=== PATIENT | female | born 1955 | race Caucasian/White ===

== ENCOUNTER 2019-06-06 14:28 | Inpatient (IN) | payer MEDICARE, MEDICAID ==
[~2019-06-06] VITALS: Ht 177.8 cm; Wt 59.9 kg
[2019-06-06 15:27] LABS: BASO # 0.1 x10^3/uL (0.0-0.2); BASO % 2 % (0-3); EOS # 0.1 x10^3/uL (0.0-0.7); EOS % 2 % (0-3); HEMATOCRIT 39.5 % (36.0-47.0); HEMOGLOBIN 12.9 g/dL (12.0-15.5); LYMPH # 1.2 x10^3/uL (1.0-4.8); LYMPH % 22 % (24-48); MEAN CORPUSCULAR HEMOGLOBIN 30 pg (25-35); MEAN CORPUSCULAR HGB CONC 33 g/dL (31-37); MEAN CORPUSCULAR VOLUME 91 fL (79-100); MONO # 0.3 x10^3/uL (0.0-1.1); MONO % 5 % (0-9); NEUT # 3.7 x10^3uL (1.8-7.7); NEUT % 70 % (31-73); PLATELET COUNT 247 x10^3/uL (140-400); RED BLOOD COUNT 4.33 x10^6/uL (3.50-5.40); RED CELL DISTRIBUTION WIDTH 13.9 % (11.5-14.5); WHITE BLOOD COUNT 5.4 x10^3/uL (4.0-11.0)
[2019-06-06 15:46] LABS: ALBUMIN 3.6 g/dL (3.4-5.0); ALBUMIN/GLOBULIN RATIO 0.8 (1.0-1.7); CALCIUM 9.1 mg/dL (8.5-10.1); CREATININE 1.7 mg/dL (0.6-1.0); GFR 30.5; MAGNESIUM 2.1 mg/dL (1.8-2.4); POTASSIUM 3.6 mmol/L (3.5-5.1); TOTAL BILIRUBIN 0.3 mg/dL (0.2-1.0); TOTAL PROTEIN 7.9 g/dL (6.4-8.2)
--- NOTE | 2019-06-06 15:48 | PHYS DOC ---
Past History Past Medical History: Anemia, CVA, Dementia, Depression, Hypertension, Seizure, Other Additional Past Medical Histor: INSOMNIA, CATARACTS Past Surgical History: Other Additional Past Surgical Histo: UNKNOWN SURGICAL HX Alcohol Use: None Drug Use: None Adult General Chief Complaint Chief Complaint: MEDICAL CLEARANCE [facility] HPI Patient is a 63 year old F who presents for medical clearance for psychiatric admission. She recently had a stroke resulting in speech deficits. She currently is having suicidal ideations. She denies other pain, shortness of breath or other symptoms Review of Systems Review of Systems Constitutional: Denies fever or chills [] Eyes: Denies change in visual acuity, redness, or eye pain [] HENT: Denies nasal congestion or sore throat [] Respiratory: Denies cough or shortness of breath [] Cardiovascular: No additional information not addressed in [facility] [] GI: Denies abdominal pain, nausea, vomiting, bloody stools or diarrhea [] : Denies dysuria or hematuria [] Musculoskeletal: Denies back pain or joint pain [] Integument: Denies rash or skin lesions [] Neurologic: Denies headache, focal weakness or sensory changes [] Endocrine: Denies polyuria or polydipsia [] All other systems were reviewed and found to be within normal limits, except as documented in this note. Family History Family History No pertinent family medical history was reported Current Medications Current Medications Current medications were reviewed Allergies Allergies Allergies Coded Allergies Type Severity Reaction Last Updated Verified Penicillins Allergy Unknown 06/06/19 Yes Physical Exam Physical Exam Constitutional: Well developed, well nourished, no acute distress, non-toxic appearance. [] HENT: Normocephalic, atraumatic, Eyes: PERRLA, EOMI, conjunctiva normal, no discharge. [] Neck: Normal range of motion, no tenderness, supple, no stridor. [] Cardiovascular:Heart rate regular rhythm, Lungs & Thorax: Bilateral breath sounds clear to auscultation [] Abdomen: Bowel sounds normal, soft, no tenderness, no masses, no pulsatile masses. [] Skin: Warm, dry, no erythema, no rash. [] Extremities: No tenderness, no cyanosis, no clubbing, ROM intact, no edema. [] Neurologic: Alert and oriented X 3, normal motor function, normal sensory function, no focal deficits noted. [] Abnormal speech Psychologic: Affect normal, Suicidal ideations Current Patient Data Vital Signs Vital Signs Date Time Temp Pulse Resp B/P (MAP) Pulse Ox O2 Delivery O2 Flow Rate FiO2 06/06/19 14:30 97.5 59 20 97 Room Air Lab Results Laboratory Tests Test 06/06/19 15:00 White Blood Count 5.4 x10^3/uL (4.0-11.0) Red Blood Count 4.33 x10^6/uL (3.50-5.40) Hemoglobin 12.9 g/dL (12.0-15.5) Hematocrit 39.5 % (36.0-47.0) Mean Corpuscular Volume 91 fL (79-100) Mean Corpuscular Hemoglobin 30 pg (25-35) Mean Corpuscular Hemoglobin Concent 33 g/dL (31-37) Red Cell Distribution Width 13.9 % (11.5-14.5) Platelet Count 247 x10^3/uL (140-400) Neutrophils (%) (Auto) 70 % (31-73) Lymphocytes (%) (Auto) 22 % (24-48) L Monocytes (%) (Auto) 5 % (0-9) Eosinophils (%) (Auto) 2 % (0-3) Basophils (%) (Auto) 2 % (0-3) Neutrophils # (Auto) 3.7 x10^3uL (1.8-7.7) Lymphocytes # (Auto) 1.2 x10^3/uL (1.0-4.8) Monocytes # (Auto) 0.3 x10^3/uL (0.0-1.1) Eosinophils # (Auto) 0.1 x10^3/uL (0.0-0.7) Basophils # (Auto) 0.1 x10^3/uL (0.0-0.2) EKG EKG Normal sinus rhythm Radiology/Procedures Radiology/Procedures [] Course & Med Decision Making Course & Med Decision Making Pertinent Labs and Imaging studies reviewed. (See chart for details) [] Dragon Disclaimer Dragon Disclaimer This electronic medical record was generated, in whole or in part, using a voice recognition dictation system. Departure Departure: Impression: Primary Impression: Encounter for medical screening examination Disposition: 65 XFER TO PSYCH HOSP/UNIT Condition: STABLE Referrals: JASMINA HURST (PCP) LISS MILLARD MD Jun 06, 2019 15:48
--- NOTE | 2019-06-06 16:11 | EKG ---
[address] [address] Test Date: 2019-06-06 Test Time: 15:07:13 Pat Name: REGIS SCHMITT Department: Room: Gender: F Drug Counselor: LUAN : 1955 Requested By: LISS MILLARD Order Number: [id number] Reading MD: Noah Feng Measurements Intervals [place] Rate: 56 P: 36 WA: 166 QRS: 46 QRSD: 88 T: 35 QT: 454 QTc: 441 Interpretive Statements SINUS RHYTHM NORMAL ECG Electronically Signed On 06-13-2019 15:10:33 SMT OPERATOR by Noah Feng
[2019-06-06 16:12] LABS: BILIRUBIN,URINE NEG (NEG); CLARITY,URINE CLOUDY; COLOR,URINE STRAW; GLUCOSE,URINE NEG (NEG)
[2019-06-06 16:14] LABS: BACTERIA,URINE MANY /HPF (0-FEW); NITRITE,URINE NEG (NEG); RBC,URINE 0 /HPF (0-2); SQUAMOUS EPITHELIAL CELL,UR FEW /LPF; UROBILINOGEN,URINE 0.2 mg/dL (0.2 mg/dL)
[2019-06-06 16:15] LABS: BARBITURATES NEG (NEG); BENZODIAZEPINES NEG (NEG); CANNABINOIDS NEG (NEG); COCAINE NEG (NEG); METHADONE NEG (NEG); OPIATES NEG (NEG); PHENCYCLIDINE NEG (NEG)
[2019-06-06 16:16] LABS: AMPHETAMINE/METHAMPHETAMINE NEG (NEG)
[2019-06-06] MEDS ORDERED: METOPROLOL TART IMMED RELEASE 25 MG TABLET PO ONE (17:00)
[2019-06-06 18:44] VITALS: BP 206/91
[2019-06-06] MEDS ORDERED: METHYL SALICYLATE/MENTHOL TOPICAL OINTMENT 57GM TUBE. TP PRN (19:00)
[2019-06-06] MEDS ORDERED: MAG HYDROX/AL HYDROX/SIMETH 30 ML ORAL.SUSP PO PRN (19:00)
[2019-06-06] MEDS ORDERED: MAGNESIUM HYDROXIDE 2,400 MG/30 ML ORAL.SUSP. PO PRN (19:00)
[2019-06-06] MEDS ORDERED: ACETAMINOPHEN 325 MG TABLET PO PRN (19:00)
--- NOTE | 2019-06-06 20:07 | PDOC ---
Exam Note: Jeb Note: Please also refer to the separate dictated note~for this date of service dictated separately. Discussed the patient with Nursing staff reviewed the chart.~Reviewed interim history and current functioning. Reviewed vital signs,~Labs/ Radiology~and current medications noted below. Continue current treatment with the changes noted in the dictated addendum note Assessment: Vital Signs/I&O: Vital Signs Date Time Temp Pulse Resp B/P (MAP) Pulse Ox O2 Delivery O2 Flow Rate FiO2 06/06/19 18:44 98.6 53 20 206/91 (129) 99 06/06/19 17:45 Room Air Labs: Laboratory Tests Test 06/06/19 15:00 06/06/19 15:39 White Blood Count 5.4 x10^3/uL (4.0-11.0) Red Blood Count 4.33 x10^6/uL (3.50-5.40) Hemoglobin 12.9 g/dL (12.0-15.5) Hematocrit 39.5 % (36.0-47.0) Mean Corpuscular Volume 91 fL (79-100) Mean Corpuscular Hemoglobin 30 pg (25-35) Mean Corpuscular Hemoglobin Concent 33 g/dL (31-37) Red Cell Distribution Width 13.9 % (11.5-14.5) Platelet Count 247 x10^3/uL (140-400) Neutrophils (%) (Auto) 70 % (31-73) Lymphocytes (%) (Auto) 22 % (24-48) L Monocytes (%) (Auto) 5 % (0-9) Eosinophils (%) (Auto) 2 % (0-3) Basophils (%) (Auto) 2 % (0-3) Neutrophils # (Auto) 3.7 x10^3uL (1.8-7.7) Lymphocytes # (Auto) 1.2 x10^3/uL (1.0-4.8) Monocytes # (Auto) 0.3 x10^3/uL (0.0-1.1) Eosinophils # (Auto) 0.1 x10^3/uL (0.0-0.7) Basophils # (Auto) 0.1 x10^3/uL (0.0-0.2) Sodium Level 144 mmol/L (136-145) Potassium Level 3.6 mmol/L (3.5-5.1) Chloride Level 104 mmol/L (98-107) Carbon Dioxide Level 30 mmol/L (21-32) Anion Gap 10 (6-14) Blood Urea Nitrogen 24 mg/dL (7-20) H Creatinine 1.7 mg/dL (0.6-1.0) H Estimated GFR (Cockcroft-Gault) 30.5 BUN/Creatinine Ratio 14 (6-20) Glucose Level 105 mg/dL (70-99) H Calcium Level 9.1 mg/dL (8.5-10.1) Magnesium Level 2.1 mg/dL (1.8-2.4) Total Bilirubin 0.3 mg/dL (0.2-1.0) Aspartate Amino Transferase (AST) 15 U/L (15-37) Alanine Aminotransferase (ALT) 18 U/L (14-59) Alkaline Phosphatase 114 U/L (46-116) Total Protein 7.9 g/dL (6.4-8.2) Albumin 3.6 g/dL (3.4-5.0) Albumin/Globulin Ratio 0.8 (1.0-1.7) L Urine Collection Type U cath Urine Color Straw Urine Clarity Cloudy Urine pH 6.0 Urine Specific [place] 1.020 Urine Protein 30 mg/dl (NEG-TRACE) Urine Glucose (UA) Neg mg/dL (NEG) Urine Ketones (Stick) Neg mg/dL (NEG) Urine Blood Neg (NEG) Urine Nitrite Neg (NEG) Urine Bilirubin Neg (NEG) Urine Urobilinogen Dipstick 0.2 mg/dL (0.2 mg/dL) Urine Leukocyte Esterase Small (NEG) Urine RBC 0 /HPF (0-2) Urine WBC 11-20 /HPF (0-4) Urine Squamous Epithelial Cells Few /LPF Urine Bacteria Many /HPF (0-FEW) Urine Opiates Screen Neg (NEG) Urine Methadone Screen Neg (NEG) Urine Barbiturates Neg (NEG) Urine Phencyclidine Screen Neg (NEG) Urine Amphetamine/Methamphetamine Neg (NEG) Urine Benzodiazepines Screen Neg (NEG) Urine Cocaine Screen Neg (NEG) Urine Cannabinoids Screen Neg (NEG) Urine Ethyl Alcohol Neg (NEG) Current Medications: Meds: Current Medications Medications (Trade) Dose Ordered Sig/Baldemar Route PRN Reason Start Time Stop Time Status Last Admin Dose Admin Metoprolol Tartrate (Lopressor) 12.5 mg 1X ONCE PO 06/06/19 17:00 06/06/19 17:01 DC 06/06/19 16:52 I have reviewed the current psychotropics carefully including drug interactions. Risk benefit ratio favors no change other than as noted in my dictated progress note. Diagnosis: Problems: (1) Encounter for medical screening examination (2) Anxiety disorder (3) Cerebrovascular accident (CVA) due to vascular occlusion (4) Major depressive disorder, recurrent episode (5) Impulse control disorder RINA ALFORD MD Jun 06, 2019 20:07
--- NOTE | 2019-06-07 00:51 | NUR ---
Admission Note with Justification for Admission to [facility] Patient admitted to [facility] for protective oversight for emergency stabilization of acute psychiatric crisis. Pt admitted from: Home Mode of arrival: EMS Accompanied By: EMS Precipitating behaviors that initiated intake and admission: was not present at time of admission or during intake, however, it is listed patient having SI with plan to use a knife and feels she is of no use to anyone, patient is very depressed. Patient not eating or sleeping well. Description of failure of out patient attempts at stabilization in previous setting list behavior and medication trials: none known, however patient was having difficulty in the home with SI issues and depression not being managed correctly. Behaviors and assessment findings upon admission: Upon assessment, patient denies SI at that time but does express extreme depression and lack of self-worth. Patient is compliant, calm, and cooperative with cares. Mostly independent. Plan: Admit for protective oversight for adjustment and stabilization of medications, behaviors and mood. Intense treatment regimen including groups, medication adjustments, therapy, consistent regimen for ADL's, self care, and sleep hygiene. Daily monitoring by Inpatient staff, Psychiatry, and Medical Physician.
[2019-06-07 06:21] VITALS: BP 188/87
[2019-06-07 07:15] LABS: BASO # 0.1 x10^3/uL (0.0-0.2); BASO % 1 % (0-3); EOS # 0.1 x10^3/uL (0.0-0.7); EOS % 3 % (0-3); HEMATOCRIT 36.2 % (36.0-47.0); HEMOGLOBIN 11.9 g/dL (12.0-15.5); LYMPH # 1.5 x10^3/uL (1.0-4.8); LYMPH % 30 % (24-48); MEAN CORPUSCULAR HEMOGLOBIN 30 pg (25-35); MEAN CORPUSCULAR HGB CONC 33 g/dL (31-37); MEAN CORPUSCULAR VOLUME 91 fL (79-100); MONO # 0.3 x10^3/uL (0.0-1.1); MONO % 7 % (0-9); NEUT # 2.9 x10^3uL (1.8-7.7); NEUT % 59 % (31-73); PLATELET COUNT 208 x10^3/uL (140-400); RED BLOOD COUNT 3.98 x10^6/uL (3.50-5.40); RED CELL DISTRIBUTION WIDTH 13.5 % (11.5-14.5); WHITE BLOOD COUNT 4.9 x10^3/uL (4.0-11.0)
[2019-06-07 07:37] LABS: ALBUMIN 3.1 g/dL (3.4-5.0); ALBUMIN/GLOBULIN RATIO 0.8 (1.0-1.7); CALCIUM 8.8 mg/dL (8.5-10.1); CREATININE 1.5 mg/dL (0.6-1.0); GFR 35.2; POTASSIUM 3.3 mmol/L (3.5-5.1); TOTAL BILIRUBIN 0.3 mg/dL (0.2-1.0); TOTAL PROTEIN 6.8 g/dL (6.4-8.2)
[2019-06-07] MEDS: ASPIRIN 325 MG TABLET PO SCH (08:17)
[2019-06-07] MEDS: DOCUSATE SODIUM 100 MG CAPSULE PO SCH (08:17)
[2019-06-07] MEDS: METOPROLOL SUCC 24HR ER 25 MG TAB.ER.24H. PO SCH (08:18)
[2019-06-07] MEDS: levETIRAcetam 500 MG TABLET PO SCH ×2 (08:19→21:03)
[2019-06-07] MEDS: MULTIVITAMIN with MINERAL TABLET. PO SCH (08:19)
[2019-06-07] MEDS: hydrALAZINE 25 MG TABLET PO SCH ×2 (08:19→13:54)
[2019-06-07] MEDS: PANTOPRAZOLE 40 MG TABLET. PO SCH (08:19)
[2019-06-07] MEDS: NICOTINE 14MG PATCH. TD SCH (08:19)
[2019-06-07] MEDS ORDERED: SERTRALINE 50 MG TABLET. PO SCH (09:00)
--- NOTE | 2019-06-07 12:49 | HP ---
ADMIT DATE: 06/06/2019 This late entry 06/06/2019 covers elements not covered in my initial note. I met with the patient evening of 06/06/2019 shortly after she arrived on the unit. IDENTIFYING DATA: The patient is a 63-year-old female referred to us from [facility] by Dr. Timur Mcadams, her primary care physician on account of worsening symptoms of depression, status post CVA with suicidal ideation with a plan to use a knife. She feels like she is of no use to anyone. She is depressed, feeling hopeless, helpless, and worthless. She has been at the nursing facility since 07/07/2018, prior to which she was living independently. Never with no children and no close family. The patient's behaviors are deemed dangerous to herself having failed outpatient psychiatric interventions. She is referred for inpatient psychiatric stabilization. CHIEF COMPLAINT: "What is the point of living." HISTORY OF PRESENT ILLNESS: The patient has a history of worsening symptoms of depression, feeling hopeless, helpless, worthless with sleep and appetite changes. She voiced threats of self-arm, suicidal ideation with a plan to use a knife. She feels like she is of no use to anyone, is a burden, has no family, no social support system. She has been seeing Dr. Gannon for counseling, has failed all of this and interventions with Dr. Mcadams for her psychotropics. She is referred for inpatient psychiatric stabilization. No clear history of bipolar disorder. She does have some short-term memory deficits, status post cerebrovascular accident. PAST PSYCHIATRIC HISTORY: As above. MEDICAL HISTORY: Positive for short-term memory deficits, chronic kidney disease, hypertension, seizure disorder, anemia, status post cerebral infarction, expressive aphasia, which further frustrates presentation. ACCU-CHEKS: None. DIET: Regular. No straws. Ambulates ad betty. ALLERGIES: PENICILLIN. CODE STATUS: Full code. FAMILY HISTORY: Noncontributory. SOCIAL HISTORY: The patient denies any alcohol or drug abuse, physical, sexual or elder abuse. She is not known to be a perpetrator. DIET: Regular. 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 States that she was an only child and parents are . REACTION TO HOSPITALIZATION: The patient accepting of it. ASSETS: Cognitively more intact than she initially presented to be. Stable living at the [facility]. MENTAL STATUS EXAMINATION: The patient was seen individually evening of 06/06/2019. She is oriented to herself and situation. With little prompting, she knew she was in [place], said she graduated from [employer] and was able to briefly talk about this. She was unaware of what year she graduated, able to talk about that she worked for [employer], unaware of the date, though she knew the year. Speech does have expressive aphasia. Attention span short. Language function intact. Mood is depressed, anxious, hopeless, worthless, but denies active suicidal ideation. Affect is mood congruent. IMPRESSION: Major depressive disorder, recurrent, severe, mild cognitive impairment, major neurocognitive disorder, early vascular with depression; impulse control disorder; rest as above. PLAN: Admit to Geropsychiatry Unit at [facility]. I will see the patient daily individually from a psychiatric standpoint. Medical followup with Dr. Bowen. Continue the patient on her current psychotropics Zoloft 50 mg a day, Remeron 7.5 at bedtime, trazodone 25 mg at bedtime. Observe baseline, then adjust as clinically indicated. Estimated length of stay 10-12 days. DISPOSITION: Plans back to [facility] when stable. MAN Anu ALFORD MD DR: MAIN/esperanza JOB#: [id number] / [id number]
--- NOTE | 2019-06-07 14:51 | NUR ---
Nursing note: Pt in dining room this morning for meds and assessment. Pt was compliant with taking meds whole and was cooperative and interactive with her assessment. She stated she is experiencing depression and SI and that she has a plan and wants to either starve herself or use a knife. Pt has no other complaints. She is currently in her room sleeping. Will continue to monitor.
[2019-06-07 16:09] VITALS: BP 132/80
[2019-06-07] MEDS: CHOLECALCIFEROL (VITAMIN D3) 50,000 UNIT CAPSULE PO SCH (17:00)
[2019-06-07 18:06] LABS: THYROXINE 7.1 ug/dL (4.5-12.0)
--- NOTE | 2019-06-07 19:55 | PDOC ---
Exam Note: Jeb Note: Please also refer to the separate dictated note~for this date of service dictated separately.~Patient seen individually. Discussed the patient with Nursing staff reviewed the chart.~Reviewed interim history and current functioning. Reviewed vital signs,~Labs/ Radiology~and current medications noted below. Continue current treatment with the changes noted in the dictated addendum note Assessment: Vital Signs/I&O: Vital Signs Date Time Temp Pulse Resp B/P (MAP) Pulse Ox O2 Delivery O2 Flow Rate FiO2 06/07/19 17:01 58 132/80 06/07/19 16:09 97.3 16 99 06/06/19 17:45 Room Air I & O 06/06/19 06/06/19 06/07/19 14:59 22:59 06:59 Intake Total 240 ml Balance 240 ml Labs: Laboratory Tests Test 06/07/19 06:25 White Blood Count 4.9 x10^3/uL (4.0-11.0) Red Blood Count 3.98 x10^6/uL (3.50-5.40) Hemoglobin 11.9 g/dL (12.0-15.5) L Hematocrit 36.2 % (36.0-47.0) Mean Corpuscular Volume 91 fL (79-100) Mean Corpuscular Hemoglobin 30 pg (25-35) Mean Corpuscular Hemoglobin Concent 33 g/dL (31-37) Red Cell Distribution Width 13.5 % (11.5-14.5) Platelet Count 208 x10^3/uL (140-400) Neutrophils (%) (Auto) 59 % (31-73) Lymphocytes (%) (Auto) 30 % (24-48) Monocytes (%) (Auto) 7 % (0-9) Eosinophils (%) (Auto) 3 % (0-3) Basophils (%) (Auto) 1 % (0-3) Neutrophils # (Auto) 2.9 x10^3uL (1.8-7.7) Lymphocytes # (Auto) 1.5 x10^3/uL (1.0-4.8) Monocytes # (Auto) 0.3 x10^3/uL (0.0-1.1) Eosinophils # (Auto) 0.1 x10^3/uL (0.0-0.7) Basophils # (Auto) 0.1 x10^3/uL (0.0-0.2) Sodium Level 144 mmol/L (136-145) Potassium Level 3.3 mmol/L (3.5-5.1) L Chloride Level 106 mmol/L (98-107) Carbon Dioxide Level 26 mmol/L (21-32) Anion Gap 12 (6-14) Blood Urea Nitrogen 23 mg/dL (7-20) H Creatinine 1.5 mg/dL (0.6-1.0) H Estimated GFR (Cockcroft-Gault) 35.2 BUN/Creatinine Ratio 15 (6-20) Glucose Level 95 mg/dL (70-99) Calcium Level 8.8 mg/dL (8.5-10.1) Magnesium Level 2.0 mg/dL (1.8-2.4) Iron Level 43 ug/dL (50-170) L Total Iron Binding Capacity 208 ug/dL (250-450) L Iron Saturation 21 % (15-34) Total Bilirubin 0.3 mg/dL (0.2-1.0) Aspartate Amino Transferase (AST) 16 U/L (15-37) Alanine Aminotransferase (ALT) 15 U/L (14-59) Alkaline Phosphatase 94 U/L (46-116) Total Protein 6.8 g/dL (6.4-8.2) Albumin 3.1 g/dL (3.4-5.0) L Albumin/Globulin Ratio 0.8 (1.0-1.7) L Vitamin B12 Level 396 pg/mL (247-911) 25-Hydroxy Vitamin D Total 21.5 ng/mL (30-100) L Thyroxine (T4) 7.1 ug/dL (4.5-12.0) Total Triiodothyronine (TT3) 79 ng/dL (71-180) Treponema pallidum Antibody Nonreactive (Nonreactive) Current Medications: Meds: Current Medications Medications (Trade) Dose Ordered Sig/Baldemar Route PRN Reason Start Time Stop Time Status Last Admin Dose Admin Aspirin (Kai Aspirin) 325 mg DAILYWBKFT PO 06/07/19 08:00 06/07/19 08:17 Multivitamins/ Calcium (Thera-M Plus) 1 tab DAILY PO 06/07/19 09:00 06/07/19 08:19 Docusate Sodium (Colace) 100 mg DAILY PO 06/07/19 09:00 06/07/19 08:17 Pantoprazole Sodium (Protonix) 40 mg DAILYAC PO 06/07/19 07:30 06/07/19 08:19 Sertraline HCl (Zoloft) 50 mg DAILY PO 06/07/19 09:00 06/07/19 17:39 DC 06/07/19 08:17 Metoprolol Succinate (Toprol Xl) 12.5 mg DAILY PO 06/07/19 09:00 06/07/19 08:18 Hydralazine HCl (Apresoline) 25 mg QID PO 06/07/19 09:00 06/07/19 16:11 DC 06/07/19 13:54 Levetiracetam (Keppra) 1,000 mg BID PO 06/07/19 09:00 06/07/19 08:19 Vitamin D (Vitamin D3) 50,000 unit WEEKLY PO 06/07/19 16:00 06/07/19 17:00 Hydralazine HCl (Apresoline) 50 mg TID PO 06/07/19 16:15 06/07/19 17:01 I have reviewed the current psychotropics carefully including drug interactions. Risk benefit ratio favors no change other than as noted in my dictated progress note. Diagnosis: Problems: (1) Anxiety disorder (2) Cerebrovascular accident (CVA) due to vascular occlusion (3) Major depressive disorder, recurrent episode (4) Impulse control disorder (5) Major neurocognitive disorder (6) Dementia, vascular, with depression (7) Mild cognitive impairment RINA ALFORD MD Jun 07, 2019 19:55
--- NOTE | 2019-06-07 20:35 | NUR ---
Patient has been provided with Practical Counseling for tobacco cessation. It included a face to face interaction and the following was discussed: Recognizing danger situations, Developing coping skills,Basic cessation information. Will follow for discharge needs and discharge planning.
[2019-06-07] MEDS: traZODone 50 MG TABLET. PO SCH (21:02)
[2019-06-07] MEDS: MIRTAZAPINE 7.5 MG TABLET. PO SCH (21:02)
[2019-06-08 00:07] LABS: HEMOGLOBIN A1C 5.1 % (4.8-5.6)
--- NOTE | 2019-06-08 00:14 | NUR ---
Nursing Note Pt states she feels a total loss of her life and control, states that she had a CVA and lost it all. She cannot even go buy new clothing, is depressed because of her loss of her material items, home and freedom. States she just wishes someone could take her shopping. Her family set up a trust for her that she cannot get to. 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 Now feels worthless and its further intensified by the fact that she cannot work and feel productive. Spent quite a bit of time listening and providing feedback to her. Feels better after our conversation.
[2019-06-08 06:09] VITALS: BP 118/60
[2019-06-08] MEDS: NICOTINE 14MG PATCH. TD SCH (09:00)
[2019-06-08] MEDS: PANTOPRAZOLE 40 MG TABLET. PO SCH (11:10)
[2019-06-08] MEDS: DOCUSATE SODIUM 100 MG CAPSULE PO SCH (11:10)
[2019-06-08] MEDS: ARIPiprazole 2 MG TABLET PO SCH (11:10)
[2019-06-08] MEDS: ASPIRIN 325 MG TABLET PO SCH (11:10)
[2019-06-08] MEDS: buPROPion XL 150 MG TAB.ER.24H PO SCH (11:11)
[2019-06-08] MEDS: levETIRAcetam 500 MG TABLET PO SCH ×2 (11:11→20:18)
[2019-06-08] MEDS: MULTIVITAMIN with MINERAL TABLET. PO SCH (11:11)
[2019-06-08] MEDS: METOPROLOL SUCC 24HR ER 25 MG TAB.ER.24H. PO SCH (11:11)
--- NOTE | 2019-06-08 11:33 | CONS ---
DATE OF CONSULTATION: 06/07/2019 REASON FOR CONSULTATION: Medical management. HISTORY OF PRESENT ILLNESS: This is a 63-year-old female patient, resident at [facility], who was admitted on account of suicidal ideation with a plan to use a knife or starve herself. She feels like she is no use to anyone, depressed, all her family have . She is the only child. She has never , has no children. She apparently had had a CVA according to her about 6 months ago and since then has been depressed, feeling hopeless, helpless, worthless. She has been at the nursing facility since 07/07/2018. Before that, she was living independently. As she has failed outpatient psychiatric intervention, she was [facility]. PAST PSYCHIATRIC HISTORY: Significant for worsening depression, feeling hopeless, helpless, worthless. She voiced ____ her to self harm, suicidal ideation with a plan to use a knife. She was apparently seeing ____ for counseling, has failed all of his ____ intervention. PAST MEDICAL HISTORY: Significant for chronic kidney disease, hypertension, seizure disorder, anemia, cerebral infarction, expressive aphasia. ALLERGIES: She is allergic to PENICILLIN. MEDICATIONS: She is currently on following medications: She is on nicotine 14 mg transdermal patch once a day, hydralazine 25 mg 4 times a day, metoprolol succinate 12.5 mg once a day. She is on aspirin 325 mg once a day, analgesic balm applied topically 4 times a day, acetaminophen 650 mg every 6 hours, levetiracetam 1000 mg twice a day, mirtazapine 7.5 mg at bedtime, Zoloft 50 mg once a day, trazodone 25 mg at bedtime, Mylanta 15 mL after meals and as needed, Colace 100 mg once a day, Protonix 40 mg once a day, milk of magnesia 30 mL p.o. daily p.r.n. for constipation, vitamin D 50,000 International Units once a week, multivitamin with mineral 1 tablet once a day. FAMILY HISTORY: Noncontributory. Apparently both parents are . SOCIAL HISTORY: She is apparently single, has never , has no children, is currently a resident at [facility]. PHYSICAL EXAMINATION: GENERAL: On examining her, the patient was sitting in her chair comfortably in no apparent respiratory distress. There was no pallor, jaundice, cyanosis or thyromegaly. No jugular venous distention. No lower limb edema. VITAL SIGNS: Her heart rate was 52, blood pressure was 188/67, temperature was 97.6, respiratory rate was 16, and oxygen saturation was 99%. HEAD, EYES, EARS, NOSE AND THROAT: Showed normocephalic, atraumatic. NECK: Supple. HEART: Showed normal first and second heart sounds with no gallop, rub or murmur. CHEST: Clear to auscultation. No crepitation or rhonchi. ABDOMEN: Distended, soft, nontender. No guarding or rigidity. No organomegaly. All hernial orifices intact. Bowel sounds normal. NEUROLOGIC: She does have at times expressive aphasia, but otherwise she seemed to be generally neurologically intact. She is able to move all her extremities and able to ambulate without assistance or assistive devices. She has no dysphagia, although she has occasional expressive aphasia. LABORATORY WORK: On admission showed her white cell count was 4900, hemoglobin 12, hematocrit 36, MCV 91, and platelet count 208,000. Her chemistry showed a serum sodium 144, potassium 3.3, chloride 106, bicarbonate 26, anion gap of 12, BUN 23, creatinine 1.5, estimated GFR was 35. Blood glucose was 95, calcium was 8.8, magnesium 2. Serum iron, TIBC and iron saturation are all consistent with anemia of chronic disease. Her serum bilirubin, AST, ALT, alkaline phosphatase were all normal. Total protein was 6.8, albumin was 3.1. Her B12 was 396 pg/mL. However, 25-hydroxy vitamin D is definitely low at 21 mcg/dL. IMPRESSION: In summary, this is a 63-year-old female patient who was admitted as a transfer from [facility] on account of suicidal ideation with a plan to use a knife or starve herself to , feels like she is of no use to anybody, depressed, with worsening symptoms of depression being feeling hopeless, helpless, worthless; all this in a background of major depressive disorder and major neurocognitive disorder with depression. She is here for inpatient psychiatric stabilization. Medically, the patient is known to have hypertension that is definitely poorly controlled. She has chronic kidney disease that seems to be stable. She is known to have cerebral infarction with expressive aphasia. Surprisingly with little other neurological deficit and obviously she has anemia, probably of chronic kidney disease, although her hemoglobin and hematocrit are still within acceptable range for patient at her age, my plan is to replenish her vitamin D and I did start her on cholecalciferol 50,000 International Units once a week. For her blood pressure, she is on 2 medications, one of them is the metoprolol succinate in very small dose at 12.5; however, we cannot increase it because of her sinus bradycardia, so I will increase hydralazine to start with 50 mg 3 times a day and we might have to increase that further. Thank you, Dr. Peace, for allowing me to participate in the care of this patient. BIRD JACK MD DR: ELY/esperanza JOB#: [id number] / [id number]
--- NOTE | 2019-06-08 13:26 | NUR ---
Patient was in her room upon morning assessment, was hard to get up. Patient told staff "get out of my room" for breakfast. The nurse went to give morning medications around 11 am. Medications needed to be crushed. Patient took encouraging to open her mouth. Patient got up for lunch and went straight back to bed. No agitation, patient is withdrawn to herself. Was just nodding her head yes to the nurse. Will continue to monitor.
--- NOTE | 2019-06-08 14:25 | NUR ---
Attempted to see Mary at three different times this date. She was sleeping soundly at all attempts and was not easily aroused by this worker's presence or verbal communication. Will attempt to see Mary at a later time.
--- NOTE | 2019-06-08 15:36 | TX PLAN ---
Interdisciplinary Tx Plan Admission Information Jun 06, 2019 at 18:15 Legal Status (on Admission): Voluntary, Court Appointed Guardian DPOA/Guardian Name: Chanel Heath Contact Other Contact Name: Laisha Cristina- caser up at public admi office Verified Code Status: Full Code Allergies: Coded Allergies: Penicillins (Verified Allergy, Unknown, 06/06/19) Diagnoses Primary Diagnosis: MDD Major Neurocognitive d/o vascular with depression Reasons for Admission: Depressed, Sig. Change Sleep, Grief, Suicidal ideation, Isolating Problem in Patient's Words: Mary shared that she has no living family. She has had a stroke and is now living in a care facility. She has sold her home and all of her possessions. She reports having no reason to live. Additional Admission Comments: Per intake, Mary voiced threats of self harm, SI with plans to use a knife, feels like she is of no use to anyone, and is depressed. Problems Active Problems: SI with plan to use knife Depressed mood Feelings of worthlessness Sleeping much of the time and isolating in her room Poor group involvement Inactive Problems: Medication compliant with encouragement Pt Strengths/Limitations Ability for [place]: Fair Cognitive Functioning/Ability: Fair Communication Skills/Ability: Fair Financial Resources: Poor Insight/Judgement: Fair Intellectual Ability: Fair Physical Health: Fair Social Skills: Fair Stability in Family: Poor Verbal Skills: Fair Other strengths/limitations: CVA with aphasia Discharge Criteria Discharge Criteria: Able meet basic life need, Adequate arrangements @DC, Adequate self-care, Improved mood/thought Preliminary Discharge Plan Preliminary DC Plan: [facility] Other Arrangements: [facility] Special Precautions Fall Risk: Moderate Initial D/C Plan Mary will return to [facility] Identified Discharge Needs: Out patient psychiatry Follow up with counselor, Dr. Gannon Follow up with PCP, Dr. Mcadams Currently Utilized Resources Currently Utilized Resources/P: SW support at nursing facility PCP Dr. Gannon, counselor Referrals Community Resources: Out patient psychiatry Identified Problems/Hx/Goals Objectives/Short-Term Goals Short Term Goals: Decrease Isolation, Dec. Symp. 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 Education: Mary studied art and theater at [employer]. Community Follow-up PCP f/u [facility] for medication management Community Provider/Family Inpu: Mary has no living family members. Treatment Plan Explained Patient/Ash Handler had this treatment plan explained to him/her as indicated by the signature below and has been given the opportunity to ask questions and make suggestions: Date: Patient/Ash Handler Signature: Patient/Ash Handler Decline: No Team Members Signatures Team Members Psychiatrist Date Nursing Date CM/SW Date Activity Therapy Date Other Date Other Date MAISHA THURMAN Jun 08, 2019 15:36
[2019-06-08 16:29] VITALS: BP 137/81
--- NOTE | 2019-06-08 19:53 | PDOC ---
Exam Note: Jeb Note: Please also refer to the separate dictated note~for this date of service dictated separately.~Patient seen individually. Discussed the patient with Nursing staff reviewed the chart.~Reviewed interim history and current functioning. Reviewed vital signs,~Labs/ Radiology~and current medications noted below. Continue current treatment with the changes noted in the dictated addendum note Assessment: Vital Signs/I&O: Vital Signs Date Time Temp Pulse Resp B/P (MAP) Pulse Ox O2 Delivery O2 Flow Rate FiO2 06/08/19 16:29 97.8 52 16 137/81 (99) 95 06/06/19 17:45 Room Air I & O 06/07/19 06/07/19 06/08/19 15:00 23:00 07:00 Intake Total 720 ml 340 ml Balance 720 ml 340 ml Current Medications: Meds: Current Medications Medications (Trade) Dose Ordered Sig/Baldemar Route PRN Reason Start Time Stop Time Status Last Admin Dose Admin Trazodone HCl (Desyrel) 25 mg QHS PO 06/07/19 21:00 06/07/19 21:02 Mirtazapine (Remeron) 7.5 mg QHS PO 06/07/19 21:00 06/07/19 21:02 Bupropion HCl (Wellbutrin Xl) 150 mg DAILY PO 06/08/19 09:00 06/10/19 21:00 06/08/19 11:11 Aripiprazole (Abilify) 2 mg DAILY PO 06/08/19 09:00 06/08/19 11:10 I have reviewed the current psychotropics carefully including drug interactions. Risk benefit ratio favors no change other than as noted in my dictated progress note. Diagnosis: Problems: (1) Mild cognitive impairment (2) Dementia, vascular, with depression (3) Major neurocognitive disorder (4) Anxiety disorder (5) Cerebrovascular accident (CVA) due to vascular occlusion (6) Major depressive disorder, recurrent episode (7) Impulse control disorder RINA ALFORD MD Jun 08, 2019 19:53
[2019-06-08] MEDS: MIRTAZAPINE 7.5 MG TABLET. PO SCH (20:18)
[2019-06-08] MEDS: POTASSIUM CHLORIDE 20 MEQ TABLET.ER. PO SCH (20:18)
[2019-06-08] MEDS: traZODone 50 MG TABLET. PO SCH (20:18)
--- NOTE | 2019-06-08 22:04 | NUR ---
Nursing note: Assumed care of pt in the day room. She had been in and out of the room, from her room and back. She was pleasant and cooperative, compliant with meds whole and assessment. No agitation, hallucinations, or delusions. No SI at this time. No c/o pain.
--- NOTE | 2019-06-09 01:35 | PN ---
DATE: 06/07/2019 PSYCHIATRIC PROGRESS NOTE This late entry of 06/07/2019 covers the elements not covered in my initial note. SUBJECTIVE: I met with the patient in the evening. Per JACKY Singh, the patient slept 4-1/4 hours previous night. She is compliant with her medications, frustrated with her CVA, expressive aphasia, states she is depressed, talked to nursing staff that she is still suicidal and had considered using a knife or starving herself, but would not do anything in the hospital. She did eat breakfast, nothing for lunch and staff have taken precautions given her fleeting suicidal ideation. REVIEW OF SYSTEMS: Positive for tiredness. No CV, , pulmonary, eye system symptoms on review. MENTAL STATUS EXAM: Oriented to herself and situation. Speech has some latency, coherent. Abstraction fair, computation impaired, language function intact, attention span short. Mood and affect remains depressed. She is somewhat paranoid. LABORATORY DATA: Reviewed. IMPRESSION: Major depressive disorder, rule out psychotic features, mild cognitive impairment; anxiety disorder, unspecified. PLAN: Change the Zoloft 50 mg a day to Wellbutrin XL 150 mg a day for 3 days, then 300 mg a day thereafter. Wellbutrin should be more activating energizing for her. We will continue Remeron 7.5 mg at bedtime and augment the Wellbutrin with Abilify 2 mg a day and also as an atypical antipsychotic given some of her paranoia and as a mood stabilizer. Adjust further as clinically indicated. RINA ALFORD MD DR: MAIN/esperanza JOB#: [id number] / [id number]
[2019-06-09] MEDS ORDERED: ASPI325T11 PO (02:42)
[2019-06-09] MEDS ORDERED: LEVE10007 PO (02:42)
[2019-06-09] MEDS ORDERED: SERT50TA PO (02:42)
[2019-06-09] MEDS ORDERED: HYDR-2868 PO (02:42)
[2019-06-09] MEDS ORDERED: DOCU-109 PO (02:42)
[2019-06-09] MEDS ORDERED: MIRT15TA2 PO (02:42)
[2019-06-09] MEDS ORDERED: MULT-114 PO (02:42)
[2019-06-09] MEDS ORDERED: TRAZ-120 PO (02:42)
[2019-06-09] MEDS ORDERED: METO-239 PO (02:42)
[2019-06-09] MEDS ORDERED: PANT40TA3 PO (02:42)
[2019-06-09 05:59] VITALS: BP 144/80
[2019-06-09] MEDS: METOPROLOL SUCC 24HR ER 25 MG TAB.ER.24H. PO SCH (08:01)
[2019-06-09] MEDS: ASPIRIN 325 MG TABLET PO SCH (08:01)
[2019-06-09] MEDS: levETIRAcetam 500 MG TABLET PO SCH ×2 (08:02→20:14)
[2019-06-09] MEDS: ARIPiprazole 2 MG TABLET PO SCH (08:02)
[2019-06-09] MEDS: MULTIVITAMIN with MINERAL TABLET. PO SCH (08:03)
[2019-06-09] MEDS: PANTOPRAZOLE 40 MG TABLET. PO SCH (08:03)
[2019-06-09] MEDS: POTASSIUM CHLORIDE 20 MEQ TABLET.ER. PO SCH ×2 (08:03→20:14)
[2019-06-09] MEDS: buPROPion XL 150 MG TAB.ER.24H PO SCH (08:03)
[2019-06-09] MEDS: DOCUSATE SODIUM 100 MG CAPSULE PO SCH (08:03)
[2019-06-09] MEDS: NICOTINE 14MG PATCH. TD SCH (08:04)
[2019-06-09 08:15] LABS: THYROID STIM HORMONE (TSH) 5.462 uIU/mL (0.358-3.740)
--- NOTE | 2019-06-09 09:34 | NUR ---
WEEKLY ACTIVITY THERAPY NOTE Date of Admission:06/07/2019 Date of AT Assessment: TBD Goal aimed: TBD Initial Goal: TBD Weekly progress towards goal: NA Group participation level: NA Weekly highlights: arrived on unit Behaviors observed: not around group, withdrawn to her room Plan: meet/assess Pt Beneficial adaptations: meet/assess Pt
--- NOTE | 2019-06-09 10:05 | NUR ---
Nursing note: Pt was in dining room for morning meds and assessment. She was compliant with taking her meds whole and was cooperative with her assessment. Pt continues to state she is depressed and is having SI. Pt is currently sleeping in her room. Will continue to monitor.
--- NOTE | 2019-06-09 10:50 | NUR ---
WEEKLY NOTE: Mary is averaging 60% of meals and five hours of sleep. She slept thru much of the day yesterday and needed physical assistance from staff to get to the dining room for meals. She reports feelings of depression around the loss of her family, home, personal items and independence due to CVA. Nursing notes reflect SI. Zoloft has been discontinued and Wellbutrin initiated.
[2019-06-09 14:03] LABS: BACTERIA,URINE MANY /HPF (0-FEW); BILIRUBIN,URINE NEG (NEG); CLARITY,URINE TURBID; COLOR,URINE YELLOW; GLUCOSE,URINE NEG (NEG); NITRITE,URINE POS (NEG); SQUAMOUS EPITHELIAL CELL,UR FEW /LPF; UROBILINOGEN,URINE 0.2 mg/dL (0.2 mg/dL); WBC,URINE 20-40 /HPF (0-4)
[2019-06-09 16:03] VITALS: BP 130/66
--- NOTE | 2019-06-09 19:59 | PDOC ---
Exam Note: Jeb Note: Please also refer to the separate dictated note~for this date of service dictated separately.~Patient seen individually. Discussed the patient with Nursing staff reviewed the chart.~Reviewed interim history and current functioning. Reviewed vital signs,~Labs/ Radiology~and current medications noted below. Continue current treatment with the changes noted in the dictated addendum note Assessment: Vital Signs/I&O: Vital Signs Date Time Temp Pulse Resp B/P (MAP) Pulse Ox O2 Delivery O2 Flow Rate FiO2 06/09/19 16:03 98.7 55 16 130/66 (87) 99 06/06/19 17:45 Room Air I & O 06/08/19 06/08/19 06/09/19 15:00 23:00 07:00 Intake Total 0 ml 360 ml Balance 0 ml 360 ml Labs: Laboratory Tests Test 06/09/19 13:13 Urine Collection Type Unknown Urine Color Yellow Urine Clarity Turbid Urine pH 7.0 Urine Specific [place] 1.020 Urine Protein Neg (NEG-TRACE) Urine Glucose (UA) Neg mg/dL (NEG) Urine Ketones (Stick) Neg mg/dL (NEG) Urine Blood Neg (NEG) Urine Nitrite Pos (NEG) Urine Bilirubin Neg (NEG) Urine Urobilinogen Dipstick 0.2 mg/dL (0.2 mg/dL) Urine Leukocyte Esterase Trace (NEG) Urine RBC 1-2 /HPF (0-2) Urine WBC 20-40 /HPF (0-4) Urine Squamous Epithelial Cells Few /LPF Urine Bacteria Many /HPF (0-FEW) Current Medications: Meds: Current Medications Medications (Trade) Dose Ordered Sig/Baldemar Route PRN Reason Start Time Stop Time Status Last Admin Dose Admin Potassium Chloride (Klor-Con) 20 meq BID PO 06/08/19 21:00 06/09/19 08:03 I have reviewed the current psychotropics carefully including drug interactions. Risk benefit ratio favors no change other than as noted in my dictated progress note. Diagnosis: Problems: (1) Mild cognitive impairment (2) Dementia, vascular, with depression (3) Major neurocognitive disorder (4) Encounter for medical screening examination (5) Anxiety disorder (6) Cerebrovascular accident (CVA) due to vascular occlusion (7) Major depressive disorder, recurrent episode (8) Impulse control disorder RINA ALFORD MD Jun 09, 2019 19:59
[2019-06-09] MEDS: traZODone 50 MG TABLET. PO SCH (20:13)
[2019-06-09] MEDS: MIRTAZAPINE 7.5 MG TABLET. PO SCH (20:14)
--- NOTE | 2019-06-09 22:08 | NUR ---
Nursing note: Assumed care of pt in the day room. She was pleasant and compliant with meds and assessment. No c/o pain, no behaviors.
[2019-06-10 06:02] VITALS: BP 170/80
[2019-06-10] MEDS: PANTOPRAZOLE 40 MG TABLET. PO SCH (08:38)
[2019-06-10] MEDS: ASPIRIN 325 MG TABLET PO SCH (08:38)
[2019-06-10] MEDS: POTASSIUM CHLORIDE 20 MEQ TABLET.ER. PO SCH ×2 (08:39→19:51)
[2019-06-10] MEDS: ARIPiprazole 2 MG TABLET PO SCH (08:39)
[2019-06-10] MEDS: levETIRAcetam 500 MG TABLET PO SCH ×2 (08:39→19:51)
[2019-06-10] MEDS: DOCUSATE SODIUM 100 MG CAPSULE PO SCH (08:40)
[2019-06-10] MEDS: METOPROLOL SUCC 24HR ER 25 MG TAB.ER.24H. PO SCH (08:40)
[2019-06-10] MEDS: NICOTINE 14MG PATCH. TD SCH (08:40)
[2019-06-10] MEDS: buPROPion XL 150 MG TAB.ER.24H PO SCH (08:40)
[2019-06-10] MEDS: MULTIVITAMIN with MINERAL TABLET. PO SCH (08:40)
--- NOTE | 2019-06-10 09:33 | NUR ---
Activity Therapy Assessment Completed based on observation and notes. Pt. withdrawn to room and sleeping since admission. When awake, Pt. declines speaking with therapist. Pt. has attended one group since admission and did well but rarely leaves room, even for meals. According to notes, Pt. has no family or friends to speak of, had a recent stroke and feels 'useless', contributing to her depression and SI. Pt. studied art and theatre in college and is independent with most all ADLs. Pt. speaks in full sentences and can advocate for herself with ease. Pt. is fully oriented and her memory seems to be well in tact. Initial goal aimed to increase socialization and engagement: Pt. will engage in three Activity Therapy groups or individual sessions before discharge. Addendum: 06/14/19 at 0955 by MO [place] ACT 06/14/19-Change goal to: Pt. will participate in at least five Activity Therapy groups per week.
--- NOTE | 2019-06-10 11:32 | NUR ---
Patient is in the dining room for assessments and medications. She is calm, cooperative and compliant. Pleasant mood, appropriate and interactive with peers and staff. No agitation. Denies pain or discomfort. Denies SI this shift.
[2019-06-10 16:17] VITALS: BP 148/82
[2019-06-10] MEDS: traZODone 50 MG TABLET. PO SCH (19:51)
[2019-06-10] MEDS: MIRTAZAPINE 7.5 MG TABLET. PO SCH (19:51)
--- NOTE | 2019-06-10 20:34 | PDOC ---
Exam Note: Jeb Note: Please also refer to the separate dictated note~for this date of service dictated separately.~Patient seen individually. Discussed the patient with Nursing staff reviewed the chart.~Reviewed interim history and current functioning. Reviewed vital signs,~Labs/ Radiology~and current medications noted below. Continue current treatment with the changes noted in the dictated addendum note Assessment: Vital Signs/I&O: Vital Signs Date Time Temp Pulse Resp B/P (MAP) Pulse Ox O2 Delivery O2 Flow Rate FiO2 06/10/19 19:51 63 148/82 06/10/19 16:17 97.6 18 98 Room Air I & O 06/09/19 06/09/19 06/10/19 15:00 23:00 07:00 Intake Total 600 ml 360 ml Balance 600 ml 360 ml Current Medications: I have reviewed the current psychotropics carefully including drug interactions. Risk benefit ratio favors no change other than as noted in my dictated progress note. Diagnosis: Problems: (1) Mild cognitive impairment (2) Dementia, vascular, with depression (3) Major neurocognitive disorder (4) Encounter for medical screening examination (5) Anxiety disorder (6) Cerebrovascular accident (CVA) due to vascular occlusion (7) Major depressive disorder, recurrent episode (8) Impulse control disorder RINA ALFORD MD Jun 10, 2019 20:34
--- NOTE | 2019-06-10 20:48 | NUR ---
Nursing note: Assumed care of pt in her room where she was sleeping. She was compliant and cooperative but withdrawn. She denies SI at this time. Not interested in snacks or tv time. Addendum: 06/10/19 at 2051 by SERA CORDON RN Previous note is in error. Please ignore
--- NOTE | 2019-06-10 20:52 | NUR ---
Nursing note: Assumed care of pt in the day room where she was eating a snack and watching a movie with peers. She was calm and compliant, no hallucinations, agitation, or delusions present at this time. Denies SI. Pt offered to give me a back rub. She is very appreciative of care.
--- NOTE | 2019-06-11 02:41 | PN ---
DATE: 06/09/2019 PSYCHIATRIC PROGRESS NOTE This late entry 06/09/2019 covers the elements not covered in my initial note. SUBJECTIVE: I met with the patient in the evening and staffed at a treatment team meeting with the entire team in the morning. Sleeping about 5 hours. Appetite is 60%. UA, C and S is awaited. REVIEW OF SYSTEMS: Positive for some tiredness. No CV, , pulmonary, eye system symptoms on review. MENTAL STATUS EXAM: Oriented to herself and situation. Speech is difficult to understand at times due to dysphasia. Abstraction fair, computation impaired, language function intact. Mood is still depressed. Denies active suicidal ideation. Attention span short. IMPRESSION: Major depressive disorder, mild cognitive impairment. Rest unchanged. PLAN: No change from initial note. Maintain Wellbutrin, increase gradually. Continue Keppra for seizures, Remeron, trazodone, Abilify to augment the Wellbutrin 2 mg a day. Rest unchanged for now. MAN Anu ALFORD MD DR: MAIN/esperanza JOB#: [id number] / [id number]
[2019-06-11 05:56] VITALS: BP 177/89
--- NOTE | 2019-06-11 08:33 | PN ---
DATE: 06/08/2019 PSYCHIATRIC PROGRESS NOTE This late entry 06/08/2019 covers elements not covered in my initial note. SUBJECTIVE: I met with the patient in the evening. According to Zhane RICO, the patient slept 6-1/2 hours previous night. Potassium 3.3, deferred to Dr. Bowen. sand slinger, she told the nursing staff, she wanted to get out, took her meds, crushed in the morning, withdrawn, depressed, frustrated with her CVA status and living circumstances. REVIEW OF SYSTEMS: No CV, , pulmonary, eye system symptoms on review. MENTAL STATUS EXAM: Oriented to herself, situation. Abstraction fair, computation impaired, language function intact, attention span short. Mood and affect remain somewhat withdrawn. LABORATORY DATA: Reviewed. IMPRESSION: Unchanged from initial note. PLAN: No change from initial note. No active suicidal ideation is a question. MAN Anu ALFORD MD DR: MAIN/esperanza JOB#: [id number] / [id number]
[2019-06-11] MEDS: MULTIVITAMIN with MINERAL TABLET. PO SCH (08:36)
[2019-06-11] MEDS: levETIRAcetam 500 MG TABLET PO SCH ×3 (08:36→21:58)
[2019-06-11] MEDS: POTASSIUM CHLORIDE 20 MEQ TABLET.ER. PO SCH ×3 (08:36→21:58)
[2019-06-11] MEDS: DOCUSATE SODIUM 100 MG CAPSULE PO SCH (08:36)
[2019-06-11] MEDS: PANTOPRAZOLE 40 MG TABLET. PO SCH (08:37)
[2019-06-11] MEDS: ARIPiprazole 2 MG TABLET PO SCH (08:37)
[2019-06-11] MEDS: ASPIRIN 325 MG TABLET PO SCH (08:37)
[2019-06-11] MEDS: METOPROLOL SUCC 24HR ER 25 MG TAB.ER.24H. PO SCH (08:37)
[2019-06-11] MEDS: NICOTINE 14MG PATCH. TD SCH (08:42)
[2019-06-11] MEDS: buPROPion XL 300 MG TAB.ER.24H. PO SCH (08:42)
--- NOTE | 2019-06-11 09:33 | NUR ---
Patient was in the dining room during morning rounding, took medications, allowed for morning assessment. No agitation noted, patient is now in the dayroom. Will continue to monitor.
[2019-06-11 15:57] VITALS: BP 151/78
--- NOTE | 2019-06-11 20:37 | PDOC ---
Exam Note: Jeb Note: Please also refer to the separate dictated note~for this date of service dictated separately.~Patient seen individually. Discussed the patient with Nursing staff reviewed the chart.~Reviewed interim history and current functioning. Reviewed vital signs,~Labs/ Radiology~and current medications noted below. Continue current treatment with the changes noted in the dictated addendum note Assessment: Vital Signs/I&O: Vital Signs Date Time Temp Pulse Resp B/P (MAP) Pulse Ox O2 Delivery O2 Flow Rate FiO2 06/11/19 15:57 98.8 60 14 151/78 (102) 98 06/11/19 05:56 Room Air I & O 06/10/19 06/10/19 06/11/19 15:00 23:00 07:00 Intake Total 480 ml 360 ml Balance 480 ml 360 ml Current Medications: Meds: Current Medications Medications (Trade) Dose Ordered Sig/Baldemar Route PRN Reason Start Time Stop Time Status Last Admin Dose Admin Bupropion HCl (Wellbutrin Xl) 300 mg DAILY PO 06/11/19 09:00 06/11/19 08:42 I have reviewed the current psychotropics carefully including drug interactions. Risk benefit ratio favors no change other than as noted in my dictated progress note. Diagnosis: Problems: (1) Mild cognitive impairment (2) Dementia, vascular, with depression (3) Major neurocognitive disorder (4) Anxiety disorder (5) Cerebrovascular accident (CVA) due to vascular occlusion (6) Major depressive disorder, recurrent episode (7) Impulse control disorder RINA ALFORD MD Jun 11, 2019 20:37
[2019-06-11] MEDS: MIRTAZAPINE 7.5 MG TABLET. PO SCH ×2 (21:00→21:58)
[2019-06-11] MEDS: traZODone 50 MG TABLET. PO SCH ×2 (21:00→21:58)
--- NOTE | 2019-06-12 00:50 | NUR ---
Pt wandered the halls this evening and put herself to bed off and on. Pt noncompliant with medications. Refused to sit up and take medications. Despite, discussion of each medication and the need for them, refused to discuss or listen to information. Yelled,"Just get out of my room. I don't want anything," repeatedly until this nurse left. Later pt laying in bed naked and refused to get dressed. With encouragement and help, went to bed with underwear and a shirt. Still refused medication or discussion. Will continue to monitor.
[2019-06-12 05:46] VITALS: BP 177/93
[2019-06-12] MEDS: ARIPiprazole 2 MG TABLET PO SCH (08:48)
[2019-06-12] MEDS: ASPIRIN 325 MG TABLET PO SCH (08:48)
[2019-06-12] MEDS: MULTIVITAMIN with MINERAL TABLET. PO SCH (08:48)
[2019-06-12] MEDS: levETIRAcetam 500 MG TABLET PO SCH ×2 (08:48→19:47)
[2019-06-12] MEDS: PANTOPRAZOLE 40 MG TABLET. PO SCH (08:48)
[2019-06-12] MEDS: buPROPion XL 300 MG TAB.ER.24H. PO SCH (08:48)
[2019-06-12] MEDS: POTASSIUM CHLORIDE 20 MEQ TABLET.ER. PO SCH ×2 (08:49→19:47)
[2019-06-12] MEDS: DOCUSATE SODIUM 100 MG CAPSULE PO SCH (08:50)
[2019-06-12] MEDS: METOPROLOL SUCC 24HR ER 25 MG TAB.ER.24H. PO SCH (08:51)
[2019-06-12] MEDS: NICOTINE 14MG PATCH. TD SCH (09:00)
[2019-06-12 15:36] VITALS: BP 125/80
--- NOTE | 2019-06-12 15:44 | NUR ---
In a.m. was extremely lethargic and weak, unable to ambulate safely and placed in w/c. Needed to be fed, but ate little. Complied with medications given crushed in pudding. Refused her nicotine patch, stated "I don't need it". In afternoon was more alert and mobile. Unable to accurately state year, day, or place, but speech was clear. 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 Has blunted affect, denies hallucinations or delusions. Incontinent of bowel and bladder.
[2019-06-12] MEDS: traZODone 50 MG TABLET. PO SCH (19:47)
[2019-06-12] MEDS: MIRTAZAPINE 7.5 MG TABLET. PO SCH (19:48)
--- NOTE | 2019-06-12 19:54 | PDOC ---
Exam Note: Jeb Note: Please also refer to the separate dictated note~for this date of service dictated separately.~Patient seen individually. Discussed the patient with Nursing staff reviewed the chart.~Reviewed interim history and current functioning. Reviewed vital signs,~Labs/ Radiology~and current medications noted below. Continue current treatment with the changes noted in the dictated addendum note Assessment: Vital Signs/I&O: Vital Signs Date Time Temp Pulse Resp B/P (MAP) Pulse Ox O2 Delivery O2 Flow Rate FiO2 06/12/19 19:47 64 125/80 06/12/19 15:36 97.8 16 96 06/11/19 05:56 Room Air I & O 06/11/19 06/11/19 06/12/19 15:00 23:00 07:00 Intake Total 600 ml 600 ml Balance 600 ml 600 ml Current Medications: I have reviewed the current psychotropics carefully including drug interactions. Risk benefit ratio favors no change other than as noted in my dictated progress note. Diagnosis: Problems: (1) Mild cognitive impairment (2) Dementia, vascular, with depression (3) Major neurocognitive disorder (4) Anxiety disorder (5) Cerebrovascular accident (CVA) due to vascular occlusion (6) Major depressive disorder, recurrent episode (7) Impulse control disorder RINA ALFORD MD Jun 12, 2019 19:54
--- NOTE | 2019-06-12 22:01 | NUR ---
Nursing note: Assumed care of pt in the day room. She was pleasant and interactive, compliant with meds and assessment. Weakness noted earlier was not noticeable tonight. No delusions or hallucinations present, no c/o pain.
--- NOTE | 2019-06-13 03:10 | PN ---
DATE: 06/10/2019 PSYCHIATRIC PROGRESS NOTE This late entry, 06/10/2019, covers elements not covered in my initial note. SUBJECTIVE: I met with the patient in the evening. Per Shelby RN, patient slept 6-1/2 hours previous night. She has been flat, anxious, compliant with medications. At one point, she was found squatting between her bed and chair. States she fell, but did not seem possible per nursing report, should be monitored for this. She probably has a UTI worsening some of her psychiatric presentation. REVIEW OF SYSTEMS: Difficulty with her expressive aphasia. No CV, , pulmonary, eye system symptoms on review. MENTAL STATUS EXAM: Oriented to herself and situation. Speech is as noted above. Abstraction fair, computation impaired, language function intact. Mood and affect withdrawn, depressed. LABORATORY DATA: Reviewed. IMPRESSION: Unchanged from initial note. PLAN: No change from initial note. Treat the UTI once sensitivity returns. RINA ALFORD MD DR: MAIN/esperanza JOB#: [id number] / [id number]
[2019-06-13 06:03] VITALS: BP 159/89
[2019-06-13] MEDS: NICOTINE 14MG PATCH. TD SCH (09:00)
[2019-06-13] MEDS: buPROPion XL 300 MG TAB.ER.24H. PO SCH (09:27)
[2019-06-13] MEDS: ASPIRIN 325 MG TABLET PO SCH (09:27)
[2019-06-13] MEDS: MULTIVITAMIN with MINERAL TABLET. PO SCH (09:28)
[2019-06-13] MEDS: levETIRAcetam 500 MG TABLET PO SCH ×2 (09:28→19:46)
[2019-06-13] MEDS: PANTOPRAZOLE 40 MG TABLET. PO SCH (09:29)
[2019-06-13] MEDS: POTASSIUM CHLORIDE 20 MEQ TABLET.ER. PO SCH ×2 (09:29→19:45)
[2019-06-13] MEDS: METOPROLOL SUCC 24HR ER 25 MG TAB.ER.24H. PO SCH (09:29)
[2019-06-13] MEDS: DOCUSATE SODIUM 100 MG CAPSULE PO SCH (09:29)
[2019-06-13] MEDS: ARIPiprazole 2 MG TABLET PO SCH (09:29)
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
--- NOTE | 2019-06-13 15:11 | NUR ---
Mary is in the day room for assessment and medication. She is in pleasant spirits. Calm, cooperative and compliant. Took her medications whole. Participated moderately in groups. No agitation. Denies pain or discomfort. Denies SI.
[2019-06-13 15:51] VITALS: BP 153/77
--- NOTE | 2019-06-13 15:58 | PN ---
DATE: 06/11/2019 PSYCHIATRIC PROGRESS NOTE This late entry 06/11/2019 covers elements not covered in my initial note. SUBJECTIVE: I met with the patient evening of 06/11/2019. The patient slept 4-1/2 hours previous night. She remains somewhat withdrawn, depressed, but denies active suicidal ideation. Does have expressive aphasia. REVIEW OF SYSTEMS: No CV, , pulmonary, eye system symptoms on review. MENTAL STATUS EXAM: Oriented to herself and situation. Speech is as noted above. Abstraction fair, computation impaired, language function intact. Mood and affect somewhat withdrawn, depressed. LABORATORY DATA: Reviewed. IMPRESSION: Unchanged from initial note. Major depressive disorder, recurrent, mild cognitive impairment. Rest unchanged. PLAN: Maintain current psychotropics, Remeron, Wellbutrin, trazodone, Abilify. She is on Keppra for seizure disorder. MAN Anu ALFORD MD DR: MAIN/esperanza JOB#: [id number] / [id number]
--- NOTE | 2019-06-13 16:03 | PN ---
DATE: 06/12/2019 PSYCHIATRIC PROGRESS NOTE This late entry 06/12/2019 covers elements not covered in my initial note. SUBJECTIVE: I met with the patient in the evening. The patient slept 5-1/2 hours previous night. UA is positive, gram-negative rods. We will defer to Dr. Bowen, sensitivity is awaited. The patient has been pleasant, compliant with her medication, refused a nicotine patch. As I met with her in the evening, she was reading a novel written by Jaylyn Garcia and when I questioned her on this what the story of a traffic police officer and how his work affected his life, she was able to recall parts of this, do not entirely. REVIEW OF SYSTEMS: Positive for problems expressing herself verbally. No CV, , pulmonary, eye system symptoms on review. MENTAL STATUS EXAM: Oriented to herself and situation. Speech as above. Abstraction fair, computation impaired, language function intact, attention span short. Mood and affect withdrawn. LABORATORY DATA: Reviewed. IMPRESSION: Major depressive disorder, recurrent, rule out psychotic features, urinary tract infection, mild cognitive impairment versus major neurocognitive disorder, early vascular with depression. Rest unchanged. PLAN: No change from initial note. Treat the UTI, defer to Dr. Bowen. Maintain Wellbutrin increase gradually. Continue Keppra, trazodone, Remeron, Abilify for now. MAN Anu ALFORD MD DR: MAIN/esperanza JOB#: [id number] / [id number]
[2019-06-13] MEDS ORDERED: DOXYCYCLINE HYCLATE 100 MG TABLET PO SCH (18:00)
[2019-06-13] MEDS: LACTOBACILLUS RHAMNOSUS GG 1 CAPSULE. PO SCH (19:45)
[2019-06-13] MEDS: MIRTAZAPINE 7.5 MG TABLET. PO SCH (19:45)
[2019-06-13] MEDS: traZODone 50 MG TABLET. PO SCH (19:46)
[2019-06-13] MEDS: DOXYCYCLINE HYCLATE 100 MG TABLET PO SCH (19:46)
--- NOTE | 2019-06-13 19:49 | PDOC ---
Exam Note: Jeb Note: Please also refer to the separate dictated note~for this date of service dictated separately.~Patient seen individually. Discussed the patient with Nursing staff reviewed the chart.~Reviewed interim history and current functioning. Reviewed vital signs,~Labs/ Radiology~and current medications noted below. Continue current treatment with the changes noted in the dictated addendum note Assessment: Vital Signs/I&O: Vital Signs Date Time Temp Pulse Resp B/P (MAP) Pulse Ox O2 Delivery O2 Flow Rate FiO2 06/13/19 15:51 97.1 153/77 (102) 06/13/19 14:55 68 06/13/19 06:03 18 96 Room Air I & O 06/12/19 06/12/19 06/13/19 14:59 22:59 06:59 Intake Total 360 ml 600 ml Balance 360 ml 600 ml Current Medications: I have reviewed the current psychotropics carefully including drug interactions. Risk benefit ratio favors no change other than as noted in my dictated progress note. Diagnosis: Problems: (1) Mild cognitive impairment (2) Dementia, vascular, with depression (3) Major neurocognitive disorder (4) Anxiety disorder (5) Cerebrovascular accident (CVA) due to vascular occlusion (6) Major depressive disorder, recurrent episode (7) Impulse control disorder RINA ALFORD MD Jun 13, 2019 19:49
--- NOTE | 2019-06-13 23:40 | NUR ---
Nursing note: Assumed care of pt in the day room where she was watching tv. Pt is pleasant and cooperative. No behaviors, no c/o pain. Meds taken whole.
[2019-06-14 06:08] VITALS: BP_SYST 107; BP_SYST 176; BP_SYST 179; BP_DIAS 65; BP_DIAS 79
[2019-06-14] MEDS: ARIPiprazole 2 MG TABLET PO SCH (08:08)
[2019-06-14] MEDS: buPROPion XL 300 MG TAB.ER.24H. PO SCH (08:08)
[2019-06-14] MEDS: DOCUSATE SODIUM 100 MG CAPSULE PO SCH (08:08)
[2019-06-14] MEDS: METOPROLOL SUCC 24HR ER 25 MG TAB.ER.24H. PO SCH (08:08)
[2019-06-14] MEDS: CHOLECALCIFEROL (VITAMIN D3) 50,000 UNIT CAPSULE PO SCH (08:09)
[2019-06-14] MEDS: LACTOBACILLUS RHAMNOSUS GG 1 CAPSULE. PO SCH ×2 (08:09→20:16)
[2019-06-14] MEDS: DOXYCYCLINE HYCLATE 100 MG TABLET PO SCH ×2 (08:10→20:16)
[2019-06-14] MEDS: POTASSIUM CHLORIDE 20 MEQ TABLET.ER. PO SCH ×2 (08:10→20:16)
[2019-06-14] MEDS: levETIRAcetam 500 MG TABLET PO SCH ×2 (08:11→20:16)
[2019-06-14] MEDS: ASPIRIN 325 MG TABLET PO SCH (08:11)
[2019-06-14] MEDS: PANTOPRAZOLE 40 MG TABLET. PO SCH (08:11)
[2019-06-14] MEDS: MULTIVITAMIN with MINERAL TABLET. PO SCH (08:11)
[2019-06-14] MEDS: NICOTINE 14MG PATCH. TD SCH (08:12)
--- NOTE | 2019-06-14 10:03 | NUR ---
Mary is in the day room for assessment and medication. She is in pleasant spirits. Calm, cooperative and compliant. Took her medications whole. Out in the day room for group. No agitation. Denies pain or discomfort. Denies SI.
--- NOTE | 2019-06-14 12:14 | NUR ---
WEEKLY ACTIVITY THERAPY NOTE Date of Admission:06/07/2019 Date of AT Assessment: 06/10/2019 Goal aimed: to increase socialization and engagement Initial Goal: Pt. will engage in three Activity Therapy groups or individual sessions before discharge. Weekly progress towards goal: achieved, four groups this week Group participation level: varied Weekly highlights: dancing a few times over the last few days Behaviors observed: basia mckeon Plan: change goal to: Pt. will participate in at least five Activity Therapy groups per week. Beneficial adaptations: positive response to music, potentially battery operated cat
--- NOTE | 2019-06-14 15:33 | NUR ---
WEEKLY NOTE: Mary is averaging 80% of meals and six hours of sleep at night. She has been cooperative with nursing assessments and typically is medication compliant. She continues to be tearful around the loss of her home and independence. Mary has been involved in some of the recreational therapy activities and particularly enjoys music and dance. Wellbutrin has been increased for depression. Mary is currently on doxycycline for a UTI. Left message for Gwen, public admin/guardian's office to provide progress report. Reviewed with Jen about the possibility of investigating if Mary may be appropriate for a HC/BS assisted living facility as she is higher functioning with her ADL's and would have an apartment of her own which she really identifies with. Jen indicated it was something she would look into. Faxed current notes to Jen at [facility] for review.
[2019-06-14 16:03] VITALS: BP 166/78
--- NOTE | 2019-06-14 19:51 | PDOC ---
Exam Note: Jeb Note: Please also refer to the separate dictated note~for this date of service dictated separately.~Patient seen individually. Discussed the patient with Nursing staff reviewed the chart.~Reviewed interim history and current functioning. Reviewed vital signs,~Labs/ Radiology~and current medications noted below. Continue current treatment with the changes noted in the dictated addendum note Assessment: Vital Signs/I&O: Vital Signs Date Time Temp Pulse Resp B/P (MAP) Pulse Ox O2 Delivery O2 Flow Rate FiO2 06/14/19 16:03 97.5 58 18 166/78 (107) 98 Room Air I & O 06/13/19 06/13/19 06/14/19 15:00 23:00 07:00 Intake Total 360 ml 240 ml 100 ml Balance 360 ml 240 ml 100 ml Current Medications: Meds: Current Medications Medications (Trade) Dose Ordered Sig/Baldemar Route PRN Reason Start Time Stop Time Status Last Admin Dose Admin Lactobacillus Rhamnosus (Culturelle) 1 cap BID PO 06/13/19 21:00 06/14/19 08:09 Doxycycline Hyclate (Vibra-Tab) 100 mg BID PO 06/13/19 21:00 06/22/19 17:59 06/14/19 08:10 I have reviewed the current psychotropics carefully including drug interactions. Risk benefit ratio favors no change other than as noted in my dictated progress note. Diagnosis: Problems: (1) Mild cognitive impairment (2) Dementia, vascular, with depression (3) Major neurocognitive disorder (4) Encounter for medical screening examination (5) Anxiety disorder (6) Cerebrovascular accident (CVA) due to vascular occlusion (7) Major depressive disorder, recurrent episode (8) Impulse control disorder RINA ALFORD MD Jun 14, 2019 19:51
[2019-06-14] MEDS: MIRTAZAPINE 7.5 MG TABLET. PO SCH (20:16)
[2019-06-14] MEDS: traZODone 50 MG TABLET. PO SCH (20:18)
--- NOTE | 2019-06-14 23:46 | PN ---
DATE: 06/13/2019 PSYCHIATRIC PROGRESS NOTE This late entry 06/13/2019 covers elements not covered in my initial note. SUBJECTIVE: I met with the patient in the evening. Per Shelby RN, the patient slept 6-3/4 hours. She does have a UTI, which makes her a little more irritable, perhaps a little more confused at times. She has otherwise been flat, withdrawn, refused nicotine patch, wandering in the unit, less isolative despite all of the above. REVIEW OF SYSTEMS: No CV, , pulmonary, eye system symptoms on review, does complain of feeling cold. I have asked the nursing staff to turn up the AC in her room. MENTAL STATUS EXAM: Oriented to herself, situation. Speech is coherent but marked by her expressive aphasia. Abstraction fair, computation impaired, language function intact. Mood and affect still depressed, withdrawn, but improved. LABORATORY DATA: Reviewed. IMPRESSION: Unchanged from initial note including urinary tract infection. PLAN: No change from initial note. RINA ALFORD MD DR: MAIN/esperanza JOB#: [id number] / [id number]
--- NOTE | 2019-06-15 01:20 | NUR ---
Last evening pt was very drowsy and has remained in her room. When asked the date she read had the number 26 written on her right palm. Meds were taken without difficulty. She has been restless at times and has had no behaviors.
[2019-06-15 06:30] VITALS: BP 164/88
[2019-06-15] MEDS: levETIRAcetam 500 MG TABLET PO SCH ×2 (08:37→20:23)
[2019-06-15] MEDS: LACTOBACILLUS RHAMNOSUS GG 1 CAPSULE. PO SCH ×2 (08:37→20:22)
[2019-06-15] MEDS: DOXYCYCLINE HYCLATE 100 MG TABLET PO SCH ×2 (08:37→20:22)
[2019-06-15] MEDS: ASPIRIN 325 MG TABLET PO SCH (08:38)
[2019-06-15] MEDS: buPROPion XL 300 MG TAB.ER.24H. PO SCH (08:38)
[2019-06-15] MEDS: DOCUSATE SODIUM 100 MG CAPSULE PO SCH (08:38)
[2019-06-15] MEDS: MULTIVITAMIN with MINERAL TABLET. PO SCH (08:38)
[2019-06-15] MEDS: ARIPiprazole 2 MG TABLET PO SCH (08:39)
[2019-06-15] MEDS: PANTOPRAZOLE 40 MG TABLET. PO SCH (08:39)
[2019-06-15] MEDS: POTASSIUM CHLORIDE 20 MEQ TABLET.ER. PO SCH ×2 (08:39→20:22)
[2019-06-15 08:42] VITALS: BP 138/86
[2019-06-15] MEDS: METOPROLOL SUCC 24HR ER 25 MG TAB.ER.24H. PO SCH (08:44)
[2019-06-15] MEDS: NICOTINE 14MG PATCH. TD SCH (08:45)
[2019-06-15 10:11] LABS: BASO # 0.1 x10^3/uL (0.0-0.2); BASO % 1 % (0-3); EOS # 0.1 x10^3/uL (0.0-0.7); EOS % 2 % (0-3); HEMATOCRIT 37.1 % (36.0-47.0); LYMPH # 1.2 x10^3/uL (1.0-4.8); LYMPH % 19 % (24-48); MEAN CORPUSCULAR HEMOGLOBIN 30 pg (25-35); MEAN CORPUSCULAR HGB CONC 32 g/dL (31-37); MEAN CORPUSCULAR VOLUME 92 fL (79-100); MONO # 0.5 x10^3/uL (0.0-1.1); MONO % 8 % (0-9); NEUT # 4.3 x10^3uL (1.8-7.7); NEUT % 70 % (31-73); PLATELET COUNT 223 x10^3/uL (140-400); RED BLOOD COUNT 4.05 x10^6/uL (3.50-5.40); RED CELL DISTRIBUTION WIDTH 14.3 % (11.5-14.5); WHITE BLOOD COUNT 6.2 x10^3/uL (4.0-11.0)
[2019-06-15 10:34] LABS: ALBUMIN 3.6 g/dL (3.4-5.0); ALBUMIN/GLOBULIN RATIO 0.9 (1.0-1.7); CALCIUM 9.3 mg/dL (8.5-10.1); GFR 25.2; POTASSIUM 4.4 mmol/L (3.5-5.1); TOTAL BILIRUBIN 0.5 mg/dL (0.2-1.0); TOTAL PROTEIN 7.4 g/dL (6.4-8.2)
--- NOTE | 2019-06-15 10:56 | NUR ---
Nursing Note Patient is pleasant, cooperative with assessment and compliant with taking her medications whole. A&Ox2. Denies SI. No c/o pain. No agitation. No aggression. Patient is currently in the day room participating in group. Will continue to monitor.
--- NOTE | 2019-06-15 13:35 | NUR ---
Patient's extremely anxious and was looking for her jewelry and wants to go home for Thanksgiving. Patient became agitated when tried redirection. The nurse called , received a telephone order of PRN Zyprexa 2.5mg PRN Q2H max 10mg/24H. PRN 2.5mg given @1310.
[2019-06-15 15:41] VITALS: BP 163/92
--- NOTE | 2019-06-15 19:50 | PDOC ---
Exam Note: Jeb Note: Please also refer to the separate dictated note~for this date of service dictated separately.~Patient seen individually. Discussed the patient with Nursing staff reviewed the chart.~Reviewed interim history and current functioning. Reviewed vital signs,~Labs/ Radiology~and current medications noted below. Continue current treatment with the changes noted in the dictated addendum note Assessment: Vital Signs/I&O: Vital Signs Date Time Temp Pulse Resp B/P (MAP) Pulse Ox O2 Delivery O2 Flow Rate FiO2 06/15/19 15:41 97.8 59 16 163/92 (115) 97 06/14/19 16:03 Room Air I & O 06/14/19 06/14/19 06/15/19 15:00 23:00 07:00 Intake Total 720 ml 580 ml Balance 720 ml 580 ml Labs: Laboratory Tests Test 06/15/19 09:59 White Blood Count 6.2 x10^3/uL (4.0-11.0) Red Blood Count 4.05 x10^6/uL (3.50-5.40) Hemoglobin 12.0 g/dL (12.0-15.5) Hematocrit 37.1 % (36.0-47.0) Mean Corpuscular Volume 92 fL (79-100) Mean Corpuscular Hemoglobin 30 pg (25-35) Mean Corpuscular Hemoglobin Concent 32 g/dL (31-37) Red Cell Distribution Width 14.3 % (11.5-14.5) Platelet Count 223 x10^3/uL (140-400) Neutrophils (%) (Auto) 70 % (31-73) Lymphocytes (%) (Auto) 19 % (24-48) L Monocytes (%) (Auto) 8 % (0-9) Eosinophils (%) (Auto) 2 % (0-3) Basophils (%) (Auto) 1 % (0-3) Neutrophils # (Auto) 4.3 x10^3uL (1.8-7.7) Lymphocytes # (Auto) 1.2 x10^3/uL (1.0-4.8) Monocytes # (Auto) 0.5 x10^3/uL (0.0-1.1) Eosinophils # (Auto) 0.1 x10^3/uL (0.0-0.7) Basophils # (Auto) 0.1 x10^3/uL (0.0-0.2) Sodium Level 142 mmol/L (136-145) Potassium Level 4.4 mmol/L (3.5-5.1) Chloride Level 105 mmol/L (98-107) Carbon Dioxide Level 30 mmol/L (21-32) Anion Gap 7 (6-14) Blood Urea Nitrogen 42 mg/dL (7-20) H Creatinine 2.0 mg/dL (0.6-1.0) H Estimated GFR (Cockcroft-Gault) 25.2 BUN/Creatinine Ratio 21 (6-20) H Glucose Level 92 mg/dL (70-99) Calcium Level 9.3 mg/dL (8.5-10.1) Total Bilirubin 0.5 mg/dL (0.2-1.0) Aspartate Amino Transferase (AST) 14 U/L (15-37) L Alanine Aminotransferase (ALT) 19 U/L (14-59) Alkaline Phosphatase 99 U/L (46-116) Total Protein 7.4 g/dL (6.4-8.2) Albumin 3.6 g/dL (3.4-5.0) Albumin/Globulin Ratio 0.9 (1.0-1.7) L Current Medications: Meds: Current Medications Medications (Trade) Dose Ordered Sig/Baldemar Route PRN Reason Start Time Stop Time Status Last Admin Dose Admin Olanzapine (ZyPREXA ZYDIS) 2.5 mg PRN Q2HR PRN PO PSYCHOSIS 06/15/19 12:45 06/15/19 13:11 I have reviewed the current psychotropics carefully including drug interactions. Risk benefit ratio favors no change other than as noted in my dictated progress note. Diagnosis: Problems: (1) Mild cognitive impairment (2) Dementia, vascular, with depression (3) Major neurocognitive disorder (4) Anxiety disorder (5) Cerebrovascular accident (CVA) due to vascular occlusion (6) Major depressive disorder, recurrent episode (7) Impulse control disorder RINA ALFORD MD Jun 15, 2019 19:50
--- NOTE | 2019-06-15 20:12 | PN ---
DATE: 06/14/2019 PSYCHIATRIC PROGRESS NOTE This late entry 06/14/2019 covers elements not covered in my initial note. SUBJECTIVE: I met with the patient evening of 06/14/2019. The patient was also staffed at a treatment team meeting earlier in the day and met with her in the evening. Overall, the patient has been somewhat withdrawn, sleeping about 6 hours. Appetite is fair. She does have a UTI, which is worsening her confusion and probably a depression as well. REVIEW OF SYSTEMS: Positive for tiredness. No CV, , pulmonary, eye system symptoms on review. She is always complaining of being cold. I asked the nursing staff to increase the thermostat in her room and they did that. MENTAL STATUS EXAM: Oriented to herself and situation. Speech has some latency, difficult to understand due to her expressive aphasia. Abstraction fair, computation impaired, language function intact, attention span short. Mood and affect somewhat withdrawn, depressed. LABORATORY DATA: Reviewed. IMPRESSION: Unchanged from initial note. PLAN: No change from initial note. Continue Remeron, trazodone, Wellbutrin is being increased, rest unchanged for now. She remains on Keppra 1000 mg b.i.d. for her seizures. RINA ALFORD MD DR: MAIN/esperanza JOB#: [id number] / [id number]
[2019-06-15] MEDS: MIRTAZAPINE 7.5 MG TABLET. PO SCH (20:21)
[2019-06-15] MEDS: traZODone 50 MG TABLET. PO SCH (20:23)
--- NOTE | 2019-06-15 23:34 | NUR ---
Pt drowsy and withdrawn to room at time of assessment. When approached, pt laying sideways in bed with one foot on the floor. Pt repositioned in bed x1 assist, some difficulty following directions noted. Pt A/O self and place. Slow to respond. Med compliant. Bed alarmed for safety.
[2019-06-16 05:45] VITALS: BP 173/97
[2019-06-16] MEDS: PANTOPRAZOLE 40 MG TABLET. PO SCH (08:22)
[2019-06-16] MEDS: LACTOBACILLUS RHAMNOSUS GG 1 CAPSULE. PO SCH ×2 (08:23→20:21)
[2019-06-16] MEDS: DOCUSATE SODIUM 100 MG CAPSULE PO SCH (08:23)
[2019-06-16] MEDS: ARIPiprazole 2 MG TABLET PO SCH (08:23)
[2019-06-16] MEDS: ASPIRIN 325 MG TABLET PO SCH (08:23)
[2019-06-16] MEDS: levETIRAcetam 500 MG TABLET PO SCH ×2 (08:24→20:21)
[2019-06-16] MEDS: POTASSIUM CHLORIDE 20 MEQ TABLET.ER. PO SCH ×2 (08:24→20:20)
[2019-06-16] MEDS: MULTIVITAMIN with MINERAL TABLET. PO SCH (08:24)
[2019-06-16] MEDS: buPROPion XL 300 MG TAB.ER.24H. PO SCH (08:24)
[2019-06-16] MEDS: DOXYCYCLINE HYCLATE 100 MG TABLET PO SCH ×2 (08:24→20:20)
[2019-06-16] MEDS: METOPROLOL SUCC 24HR ER 25 MG TAB.ER.24H. PO SCH (08:25)
[2019-06-16 08:38] LABS: CALCIUM 9.3 mg/dL (8.5-10.1); CREATININE 1.9 mg/dL (0.6-1.0); GFR 26.8; POTASSIUM 4.4 mmol/L (3.5-5.1)
[2019-06-16] MEDS: NICOTINE 14MG PATCH. TD SCH (08:48)
--- NOTE | 2019-06-16 10:31 | PN ---
DATE: 06/15/2019 This late entry June 15 covers elements not covered in my initial note. SUBJECTIVE: I met with the patient evening of June 15. Per JACKY Perez, the patient slept 6 hours previous night. Appetite 80%. BUN has increased a fair amount, we will defer to Dr. Bowen and a postvoid bladder scan is being done. She has been anxious at times, received Zyprexa p.r.n. Remains somewhat obsessed about discharge plans. Nursing staff had paged me earlier in the day for the anxiety and that is when we added the Zyprexa. REVIEW OF SYSTEMS: Complains of feeling cold. No CV, , pulmonary, eye system symptoms on review. MENTAL STATUS EXAM: Oriented to herself and situation. Speech is difficult to understand consequent to her aphasia. Abstraction fair, computation impaired, language function intact, attention span short. Mood and affect somewhat anxious, labile. LABORATORY DATA: Reviewed. IMPRESSION: Unchanged from initial note. PLAN: No change from initial note as noted above. RINA ALFORD MD DR: MAIN/esperanza JOB#: [id number] / [id number]
--- NOTE | 2019-06-16 13:40 | NUR ---
Patient is in the dining room during morning medication pass, took medications whole, allowed for morning assessment. No agitation noted, pt denies pain. Will continue to monitor.
--- NOTE | 2019-06-16 14:50 | PN ---
DATE: 06/16/2019 PSYCHIATRIC PROGRESS NOTE This note covers elements not covered in my initial note 06/16. SUBJECTIVE: I met with the patient in the morning. Overall, the patient slept 4-1/2 hours previous night. She remains somewhat anxious, complains of feeling cold. REVIEW OF SYSTEMS: No CV, , pulmonary, eye system symptoms on review. MENTAL STATUS EXAM: Oriented to herself and situation. Speech has some latency, often responses monosyllabic, difficult to understand at times due to her expressive aphasia. She is talking about wanting to leave, so that she can get her car and drive away. Abstraction fair, computation impaired, language function intact. Mood and affect withdrawn. LABORATORY DATA: Reviewed. IMPRESSION: Unchanged from initial note. PLAN: No change from initial note. MAN Anu ALFORD MD DR: MAIN/esperanza JOB#: [id number] / [id number]
[2019-06-16 16:11] VITALS: BP 132/79
[2019-06-16] MEDS: MIRTAZAPINE 7.5 MG TABLET. PO SCH (20:20)
[2019-06-16] MEDS: traZODone 50 MG TABLET. PO SCH (20:21)
--- NOTE | 2019-06-16 20:36 | PDOC ---
Exam Note: Jeb Note: Please also refer to the separate dictated note~for this date of service dictated separately.~Patient seen individually. Discussed the patient with Nursing staff reviewed the chart.~Reviewed interim history and current functioning. Reviewed vital signs,~Labs/ Radiology~and current medications noted below. Continue current treatment with the changes noted in the dictated addendum note Assessment: Vital Signs/I&O: Vital Signs Date Time Temp Pulse Resp B/P (MAP) Pulse Ox O2 Delivery O2 Flow Rate FiO2 06/16/19 20:21 74 132/79 06/16/19 16:11 98.7 16 97 06/14/19 16:03 Room Air I & O 06/15/19 06/15/19 06/16/19 15:00 23:00 07:00 Intake Total 720 ml 200 ml Balance 720 ml 200 ml Labs: Laboratory Tests Test 06/16/19 08:05 Sodium Level 141 mmol/L (136-145) Potassium Level 4.4 mmol/L (3.5-5.1) Chloride Level 103 mmol/L (98-107) Carbon Dioxide Level 27 mmol/L (21-32) Anion Gap 11 (6-14) Blood Urea Nitrogen 39 mg/dL (7-20) H Creatinine 1.9 mg/dL (0.6-1.0) H Estimated GFR (Cockcroft-Gault) 26.8 Glucose Level 103 mg/dL (70-99) H Calcium Level 9.3 mg/dL (8.5-10.1) Ammonia < 10 mcmol/L (11-34) L Creatine Kinase 50 U/L (26-192) Current Medications: I have reviewed the current psychotropics carefully including drug interactions. Risk benefit ratio favors no change other than as noted in my dictated progress note. Diagnosis: Problems: (1) Mild cognitive impairment (2) Dementia, vascular, with depression (3) Major neurocognitive disorder (4) Anxiety disorder (5) Cerebrovascular accident (CVA) due to vascular occlusion (6) Major depressive disorder, recurrent episode (7) Impulse control disorder RINA ALFORD MD Jun 16, 2019 20:36
--- NOTE | 2019-06-16 23:38 | NUR ---
Nursing Note The patient was calm and cooperative during interactions with this nurse and took her medication whole. The patient is currently sleeping in her room.
[2019-06-17 06:26] VITALS: BP 165/82
[2019-06-17] MEDS: NICOTINE 14MG PATCH. TD SCH (09:00)
[2019-06-17] MEDS: ASPIRIN 325 MG TABLET PO SCH (09:13)
[2019-06-17] MEDS: levETIRAcetam 500 MG TABLET PO SCH ×2 (09:14→20:39)
[2019-06-17] MEDS: METOPROLOL SUCC 24HR ER 25 MG TAB.ER.24H. PO SCH (09:14)
[2019-06-17] MEDS: buPROPion XL 300 MG TAB.ER.24H. PO SCH (09:14)
[2019-06-17] MEDS: LACTOBACILLUS RHAMNOSUS GG 1 CAPSULE. PO SCH ×2 (09:14→20:40)
[2019-06-17] MEDS: MULTIVITAMIN with MINERAL TABLET. PO SCH (09:14)
[2019-06-17] MEDS: POTASSIUM CHLORIDE 20 MEQ TABLET.ER. PO SCH ×2 (09:15→20:39)
[2019-06-17] MEDS: PANTOPRAZOLE 40 MG TABLET. PO SCH (09:15)
[2019-06-17] MEDS: ARIPiprazole 2 MG TABLET PO SCH (09:15)
[2019-06-17] MEDS: DOCUSATE SODIUM 100 MG CAPSULE PO SCH (09:15)
[2019-06-17] MEDS: DOXYCYCLINE HYCLATE 100 MG TABLET PO SCH ×2 (09:15→20:39)
--- NOTE | 2019-06-17 11:38 | NUR ---
Patient is in her room for assessment and medication. She is in pleasant spirits. Calm, cooperative and compliant. Took her medications whole. No agitation. Denies pain or discomfort. Denies SI.
[2019-06-17 15:33] VITALS: BP 140/82
--- NOTE | 2019-06-17 20:04 | PDOC ---
Exam Note: Jeb Note: Please also refer to the separate dictated note~for this date of service dictated separately.~Patient seen individually. Discussed the patient with Nursing staff reviewed the chart.~Reviewed interim history and current functioning. Reviewed vital signs,~Labs/ Radiology~and current medications noted below. Continue current treatment with the changes noted in the dictated addendum note Assessment: Vital Signs/I&O: Vital Signs Date Time Temp Pulse Resp B/P (MAP) Pulse Ox O2 Delivery O2 Flow Rate FiO2 06/17/19 15:36 70 140/82 06/17/19 15:33 97.4 16 100 06/17/19 06:26 Room Air I & O 06/16/19 06/16/19 06/17/19 14:59 22:59 06:59 Intake Total 360 ml 460 ml Balance 360 ml 460 ml Current Medications: I have reviewed the current psychotropics carefully including drug interactions. Risk benefit ratio favors no change other than as noted in my dictated progress note. Diagnosis: Problems: (1) Mild cognitive impairment (2) Dementia, vascular, with depression (3) Major neurocognitive disorder (4) Encounter for medical screening examination (5) Anxiety disorder (6) Cerebrovascular accident (CVA) due to vascular occlusion (7) Major depressive disorder, recurrent episode (8) Impulse control disorder RINA ALFORD MD Jun 17, 2019 20:04
[2019-06-17] MEDS: MIRTAZAPINE 7.5 MG TABLET. PO SCH (20:39)
[2019-06-17] MEDS: traZODone 50 MG TABLET. PO SCH (20:39)
--- NOTE | 2019-06-18 05:27 | NUR ---
Nursing Note The patient was located in her room laying in her bed for her assessment and medication pass. the patient was drowsy but cooperative. the patient took her medication whole. The patient received PRN Milk of Magnesia with her HS medication R/T last bowel movement documented on 06/11.
[2019-06-18 05:56] VITALS: BP 143/85
[2019-06-18] MEDS: PANTOPRAZOLE 40 MG TABLET. PO SCH (08:06)
[2019-06-18] MEDS: ARIPiprazole 2 MG TABLET PO SCH (08:06)
[2019-06-18] MEDS: ASPIRIN 325 MG TABLET PO SCH (08:06)
[2019-06-18] MEDS: levETIRAcetam 500 MG TABLET PO SCH ×2 (08:07→20:00)
[2019-06-18] MEDS: MULTIVITAMIN with MINERAL TABLET. PO SCH (08:07)
[2019-06-18] MEDS: LACTOBACILLUS RHAMNOSUS GG 1 CAPSULE. PO SCH ×2 (08:07→20:02)
[2019-06-18] MEDS: POTASSIUM CHLORIDE 20 MEQ TABLET.ER. PO SCH ×2 (08:07→20:01)
[2019-06-18] MEDS: DOCUSATE SODIUM 100 MG CAPSULE PO SCH (08:07)
[2019-06-18] MEDS: METOPROLOL SUCC 24HR ER 25 MG TAB.ER.24H. PO SCH (08:08)
[2019-06-18] MEDS: buPROPion XL 300 MG TAB.ER.24H. PO SCH (08:08)
[2019-06-18] MEDS: NICOTINE 14MG PATCH. TD SCH (08:08)
[2019-06-18] MEDS: DOXYCYCLINE HYCLATE 100 MG TABLET PO SCH ×2 (08:08→20:00)
--- NOTE | 2019-06-18 10:41 | NUR ---
Patient was in the dayroom during morning rounding, took medications whole. Allowed for morning assessment. Patient denies pain and S.I at this time. No agitation noted, patient has been calm, cooperative, visiting with staff. Will continue to monitor.
[2019-06-18 15:48] VITALS: BP 144/75
[2019-06-18] MEDS: MIRTAZAPINE 7.5 MG TABLET. PO SCH (20:00)
[2019-06-18] MEDS: traZODone 50 MG TABLET. PO SCH (20:01)
--- NOTE | 2019-06-18 20:50 | NUR ---
Nursing Note The patient was located in the day room for her medication and assessment. the patient took her medication whole and was appropriate during interactions with this nurse. the patient is currently located in her room.
--- NOTE | 2019-06-18 21:52 | PDOC ---
Exam Note: Jeb Note: Please also refer to the separate dictated note~for this date of service dictated separately.~Patient seen individually. Discussed the patient with Nursing staff reviewed the chart.~Reviewed interim history and current functioning. Reviewed vital signs,~Labs/ Radiology~and current medications noted below. Continue current treatment with the changes noted in the dictated addendum note Assessment: Vital Signs/I&O: Vital Signs Date Time Temp Pulse Resp B/P (MAP) Pulse Ox O2 Delivery O2 Flow Rate FiO2 06/18/19 20:01 63 144/75 06/18/19 15:48 97.9 16 97 06/17/19 06:26 Room Air I & O 06/17/19 06/17/19 06/18/19 15:00 23:00 07:00 Intake Total 360 ml 480 ml Balance 360 ml 480 ml Current Medications: I have reviewed the current psychotropics carefully including drug interactions. Risk benefit ratio favors no change other than as noted in my dictated progress note. Diagnosis: Problems: (1) Mild cognitive impairment (2) Dementia, vascular, with depression (3) Major neurocognitive disorder (4) Encounter for medical screening examination (5) Anxiety disorder (6) Cerebrovascular accident (CVA) due to vascular occlusion (7) Major depressive disorder, recurrent episode (8) Impulse control disorder RINA ALFORD MD Jun 18, 2019 21:52
[2019-06-19 05:55] VITALS: BP 165/83
[2019-06-19] MEDS: NICOTINE 14MG PATCH. TD SCH (08:20)
[2019-06-19] MEDS: levETIRAcetam 500 MG TABLET PO SCH ×2 (08:20→21:00)
[2019-06-19] MEDS: DOCUSATE SODIUM 100 MG CAPSULE PO SCH (08:20)
[2019-06-19] MEDS: PANTOPRAZOLE 40 MG TABLET. PO SCH (08:20)
[2019-06-19] MEDS: ASPIRIN 325 MG TABLET PO SCH (08:20)
[2019-06-19] MEDS: buPROPion XL 300 MG TAB.ER.24H. PO SCH (08:20)
[2019-06-19] MEDS: POTASSIUM CHLORIDE 20 MEQ TABLET.ER. PO SCH ×2 (08:21→21:00)
[2019-06-19] MEDS: ARIPiprazole 2 MG TABLET PO SCH (08:21)
[2019-06-19] MEDS: LACTOBACILLUS RHAMNOSUS GG 1 CAPSULE. PO SCH ×2 (08:21→21:00)
[2019-06-19] MEDS: DOXYCYCLINE HYCLATE 100 MG TABLET PO SCH ×2 (08:22→21:00)
[2019-06-19] MEDS: MULTIVITAMIN with MINERAL TABLET. PO SCH (08:22)
[2019-06-19] MEDS: METOPROLOL SUCC 24HR ER 25 MG TAB.ER.24H. PO SCH (08:22)
[2019-06-19 16:09] VITALS: BP 136/84
--- NOTE | 2019-06-19 18:27 | NUR ---
Pt up adl in halls. Out to meds with assist. Took am meds with some difficulty. Had issues swallowing them. Has been compliant with cares. Pt drowsy in afternoon and slept thru lunch.
--- NOTE | 2019-06-19 20:35 | PDOC ---
Exam Note: Jeb Note: Please also refer to the separate dictated note~for this date of service dictated separately.~Patient seen individually. Discussed the patient with Nursing staff reviewed the chart.~Reviewed interim history and current functioning. Reviewed vital signs,~Labs/ Radiology~and current medications noted below. Continue current treatment with the changes noted in the dictated addendum note Assessment: Vital Signs/I&O: Vital Signs Date Time Temp Pulse Resp B/P (MAP) Pulse Ox O2 Delivery O2 Flow Rate FiO2 06/19/19 16:09 97.3 97 16 136/84 (101) 95 06/17/19 06:26 Room Air I & O 06/18/19 06/18/19 06/19/19 14:59 22:59 06:59 Intake Total 960 ml 480 ml Balance 960 ml 480 ml Current Medications: I have reviewed the current psychotropics carefully including drug interactions. Risk benefit ratio favors no change other than as noted in my dictated progress note. Diagnosis: Problems: (1) Mild cognitive impairment (2) Dementia, vascular, with depression (3) Major neurocognitive disorder (4) Anxiety disorder (5) Cerebrovascular accident (CVA) due to vascular occlusion (6) Major depressive disorder, recurrent episode (7) Impulse control disorder RINA ALFORD MD Jun 19, 2019 20:34
[2019-06-19] MEDS: MIRTAZAPINE 7.5 MG TABLET. PO SCH (21:00)
[2019-06-19] MEDS: traZODone 50 MG TABLET. PO SCH (21:00)
--- NOTE | 2019-06-19 22:24 | PN ---
DATE: 06/18/2019 PSYCHIATRIC PROGRESS NOTE This late entry 06/18/2019 covers the elements not covered in my initial note. SUBJECTIVE: I met with the patient individually. The patient slept 5 hours previous night. She remains somewhat depressed, withdrawn, but less so than before. REVIEW OF SYSTEMS: No CV, , pulmonary, eye system symptoms on review. MENTAL STATUS EXAMINATION: The patient is oriented to herself and situation. Speech is marked by her expressive aphasia. No CV, , pulmonary, eye system symptoms on review. Oriented to herself and situation. Speech above. Abstraction fair, computation impaired, language function intact. Mood and affect still depressed, but less so than before. LABORATORY DATA: Reviewed. No active suicidal ideation. IMPRESSION: Unchanged from initial note. PLAN: No change from initial note. MAN Anu ALFORD MD DR: MAIN/esperanza JOB#: [id number] / [id number]
--- NOTE | 2019-06-19 22:30 | PN ---
DATE: 06/17/2019 PSYCHIATRIC PROGRESS NOTE This late entry 06/17 covers elements not covered in my initial note. SUBJECTIVE: I met with the patient individually. The patient slept 4-1/2 hours previous night. Overall, per nursing report, the patient remains somewhat depressed, withdrawn. Denies active suicidal ideation. REVIEW OF SYSTEMS: Positive for some impairment of ambulation, difficulty expressing herself due to expressive aphasia. No CV, , pulmonary, eye system symptoms on review. MENTAL STATUS EXAMINATION: Oriented to herself and situation. Speech is as noted above. Abstraction fair, computation impaired, language function intact, attention span short. Mood and affect remains somewhat depressed. LABORATORY DATA: Reviewed. No active suicidal ideation. IMPRESSION: Unchanged from initial note. PLAN: No change from initial note. Maintain Remeron, trazodone, Wellbutrin, Abilify and she is on Keppra for her seizures. RINA ALFORD MD DR: MAIN/esperanza JOB#: [id number] / [id number]
--- NOTE | 2019-06-19 23:53 | NUR ---
Nursing Note Pt still with significant drowsiness, will not take meds just rolls over in bed and buries her face in the pillow. Vitals taken all WNL. Meds held secondary to excessive drowsiness.
[2019-06-20] MEDS: traZODone 50 MG TABLET. PO SCH ×2 (00:44→20:54)
[2019-06-20] MEDS: POTASSIUM CHLORIDE 20 MEQ TABLET.ER. PO SCH ×3 (00:45→20:54)
[2019-06-20] MEDS: levETIRAcetam 500 MG TABLET PO SCH ×3 (00:45→20:52)
[2019-06-20] MEDS: MIRTAZAPINE 7.5 MG TABLET. PO SCH ×2 (00:46→20:52)
[2019-06-20] MEDS: LACTOBACILLUS RHAMNOSUS GG 1 CAPSULE. PO SCH ×3 (00:46→20:52)
[2019-06-20] MEDS: DOXYCYCLINE HYCLATE 100 MG TABLET PO SCH ×2 (00:46→08:15)
--- NOTE | 2019-06-20 01:30 | NUR ---
Nursing Note Pt awakens to voice and is much more alert and cooperative. Bright affect compliant with meds and assessment.
[2019-06-20 06:12] VITALS: BP 137/84
[2019-06-20] MEDS: DOCUSATE SODIUM 100 MG CAPSULE PO SCH (08:16)
[2019-06-20] MEDS: MULTIVITAMIN with MINERAL TABLET. PO SCH (08:16)
[2019-06-20] MEDS: ASPIRIN 325 MG TABLET PO SCH (08:16)
[2019-06-20] MEDS: PANTOPRAZOLE 40 MG TABLET. PO SCH (08:17)
[2019-06-20] MEDS: ARIPiprazole 2 MG TABLET PO SCH (08:17)
[2019-06-20] MEDS: buPROPion XL 300 MG TAB.ER.24H. PO SCH (08:19)
[2019-06-20] MEDS: METOPROLOL SUCC 24HR ER 25 MG TAB.ER.24H. PO SCH (08:19)
[2019-06-20] MEDS: NICOTINE 14MG PATCH. TD SCH (08:19)
--- NOTE | 2019-06-20 13:53 | NUR ---
Patient is in the dining room for assessments and medications. She is alert, appropriate and interactive with peers and staff. Compliant, pleasant. No agitation, no c/o pain or discomfort. Denies SI this shift. Out in the day room for much of the day, less withdrawn.
--- NOTE | 2019-06-20 14:43 | NUR ---
consulted regarding patient UTI. Doxycyline DC'd and IV Meropenem ordered. Patient to receive 1 gram BID starting tonight at 1800.
[2019-06-20 16:08] VITALS: BP 159/93
[2019-06-20] MEDS: MEROPENEM 1 GM in IV NORMAL SALINE 100ML 100 ML IV SCH (18:00)
--- NOTE | 2019-06-20 20:53 | PDOC ---
Exam Note: Jeb Note: Please also refer to the separate dictated note~for this date of service dictated separately.~Patient seen individually. Discussed the patient with Nursing staff reviewed the chart.~Reviewed interim history and current functioning. Reviewed vital signs,~Labs/ Radiology~and current medications noted below. Continue current treatment with the changes noted in the dictated addendum note Assessment: Vital Signs/I&O: Vital Signs Date Time Temp Pulse Resp B/P (MAP) Pulse Ox O2 Delivery O2 Flow Rate FiO2 06/20/19 16:08 97.1 53 17 159/93 (115) 93 06/17/19 06:26 Room Air I & O 06/19/19 06/19/19 06/20/19 15:00 23:00 07:00 Intake Total 600 ml 340 ml Balance 600 ml 340 ml Current Medications: Meds: Current Medications Medications (Trade) Dose Ordered Sig/Baldemar Route PRN Reason Start Time Stop Time Status Last Admin Dose Admin Meropenem 1 gm/ Sodium Chloride 100 ml @ 200 mls/hr Q12H IV 06/20/19 18:00 06/20/19 18:00 I have reviewed the current psychotropics carefully including drug interactions. Risk benefit ratio favors no change other than as noted in my dictated progress note. Diagnosis: Problems: (1) Mild cognitive impairment (2) Dementia, vascular, with depression (3) Major neurocognitive disorder (4) Anxiety disorder (5) Cerebrovascular accident (CVA) due to vascular occlusion (6) Major depressive disorder, recurrent episode (7) Impulse control disorder RINA ALFORD MD Jun 20, 2019 20:52
--- NOTE | 2019-06-20 22:18 | PN ---
DATE: 06/19/2019 PSYCHIATRIC PROGRESS NOTE This late entry of 06/19/2019 covers the elements not covered in my initial note. SUBJECTIVE: I met with the patient in the evening of 06/19/2019. Overall, the patient remains somewhat withdrawn, slept through lunch. She does have a UTI and I will defer this to Dr. Bowen. REVIEW OF SYSTEMS: Positive for some tiredness, feeling cold. No CV, , pulmonary, eye system symptoms on review. MENTAL STATUS EXAM: Oriented to herself and situation. Speech is difficult to understand consequent to her expressive aphasia. Abstraction fair, computation impaired, language function intact, attention span short. Mood and affect still withdrawn, depressed, but improved. LABORATORY DATA: Reviewed. IMPRESSION: Unchanged from initial note. PLAN: No change from initial note. MAN Anu ALFORD MD DR: MAIN/esperanza JOB#: [id number] / [id number]
--- NOTE | 2019-06-21 | NUR ---
Nursing Note Pt continues to be drowsy during assessment, but later awakens incontinent up to bathroom changing her brief. Speech is rather thick and slow but can make her needs known. Smiles is pleasant and cooperative.
[2019-06-21 05:43] VITALS: BP 146/73
[2019-06-21] MEDS: MEROPENEM 1 GM in IV NORMAL SALINE 100ML 100 ML IV SCH ×4 (05:52→18:44)
[2019-06-21] MEDS: ASPIRIN 325 MG TABLET PO SCH (08:28)
[2019-06-21] MEDS: ARIPiprazole 2 MG TABLET PO SCH (08:28)
[2019-06-21] MEDS: POTASSIUM CHLORIDE 20 MEQ TABLET.ER. PO SCH ×2 (08:29→20:31)
[2019-06-21] MEDS: levETIRAcetam 500 MG TABLET PO SCH ×2 (08:29→20:31)
[2019-06-21] MEDS: LACTOBACILLUS RHAMNOSUS GG 1 CAPSULE. PO SCH ×2 (08:29→20:31)
[2019-06-21] MEDS: CHOLECALCIFEROL (VITAMIN D3) 50,000 UNIT CAPSULE PO SCH (08:30)
[2019-06-21] MEDS: DOCUSATE SODIUM 100 MG CAPSULE PO SCH (08:30)
[2019-06-21] MEDS: PANTOPRAZOLE 40 MG TABLET. PO SCH (08:31)
[2019-06-21] MEDS: MULTIVITAMIN with MINERAL TABLET. PO SCH (08:31)
[2019-06-21] MEDS: buPROPion XL 300 MG TAB.ER.24H. PO SCH (08:31)
[2019-06-21] MEDS: METOPROLOL SUCC 24HR ER 25 MG TAB.ER.24H. PO SCH (08:33)
[2019-06-21] MEDS: NICOTINE 14MG PATCH. TD SCH (08:33)
--- NOTE | 2019-06-21 10:51 | NUR ---
Patient is in the dining room for assessment and medication. She is calm, cooperative and compliant. Takes her meds whole. IV site on right forearm is patent. Dressing is clean, dry and intact. No agitation. Somewhat withdrawn to room, but did spend a good amount of time in the day room. Denies pain or discomfort. Denies SI.
[2019-06-21 15:47] VITALS: BP 164/94
[2019-06-21] MEDS: 0.9 % SODIUM CHLORIDE 10 ML DISP.SYRIN. IV SCH (19:00)
[2019-06-21] MEDS: traZODone 50 MG TABLET. PO SCH (20:31)
[2019-06-21] MEDS: MIRTAZAPINE 7.5 MG TABLET. PO SCH (20:31)
--- NOTE | 2019-06-21 20:35 | PDOC ---
Exam Note: Jeb Note: Please also refer to the separate dictated note~for this date of service dictated separately.~Patient seen individually. Discussed the patient with Nursing staff reviewed the chart.~Reviewed interim history and current functioning. Reviewed vital signs,~Labs/ Radiology~and current medications noted below. Continue current treatment with the changes noted in the dictated addendum note Assessment: Vital Signs/I&O: Vital Signs Date Time Temp Pulse Resp B/P (MAP) Pulse Ox O2 Delivery O2 Flow Rate FiO2 06/21/19 20:31 72 164/94 06/21/19 15:47 97.9 16 94 06/17/19 06:26 Room Air I & O 06/20/19 06/20/19 06/21/19 15:00 23:00 07:00 Intake Total 840 ml 360 ml 240 ml Balance 840 ml 360 ml 240 ml Current Medications: I have reviewed the current psychotropics carefully including drug interactions. Risk benefit ratio favors no change other than as noted in my dictated progress note. Diagnosis: Problems: (1) Mild cognitive impairment (2) Dementia, vascular, with depression (3) Major neurocognitive disorder (4) Anxiety disorder (5) Cerebrovascular accident (CVA) due to vascular occlusion (6) Major depressive disorder, recurrent episode (7) Impulse control disorder RINA ALFORD MD Jun 21, 2019 20:35
--- NOTE | 2019-06-21 20:56 | PN ---
DATE: 06/20/2019 PSYCHIATRIC PROGRESS NOTE This late entry 06/20/2019 covers elements not covered in my initial note. SUBJECTIVE: I met with the patient evening of 06/20/2019. The patient slept 5-3/4 hours previous night per JACKY Infante. She remains on IV meropenem for her UTI. The patient remains somewhat withdrawn, not aggressive. Appetite is fair, less isolated. REVIEW OF SYSTEMS: Positive for tiredness or met with her at length in her room. REVIEW OF SYSTEMS: No CV, , pulmonary, eye system symptoms on review. She does have expressive aphasia. MENTAL STATUS EXAM: Oriented to herself and situation. Speech as noted, abstraction fair, computation impaired, language function intact, attention span short. Mood and affect still depressed, withdrawn, but improved from before. No active suicidal ideation. LABORATORY DATA: Reviewed. IMPRESSION: Major depressive disorder, recurrent with psychotic features, mild cognitive impairment. Rest unchanged including urinary tract infection. PLAN: Treat the UTI. Continue trazodone, Remeron, Wellbutrin and Abilify and she is on Keppra for her seizures. RINA ALFORD MD DR: MAIN/esperanza JOB#: [id number] / [id number]
--- NOTE | 2019-06-21 21:30 | NUR ---
Nursing note: Assumed care of pt in her room. She was sleeping but easily awakened. The IV pt had earlier failed and several attempts were made to re-establish, but failed. I also attempted and failed. Another RN will make an attempt. Pt is calm and compliant, no c/o pain, no behaviors or SI.
[2019-06-22] MEDS: 0.9 % SODIUM CHLORIDE 10 ML DISP.SYRIN. IV SCH ×4 (01:00→20:59)
[2019-06-22] MEDS: MEROPENEM 1 GM in IV NORMAL SALINE 100ML 100 ML IV SCH ×2 (05:32→18:08)
[2019-06-22 05:59] VITALS: BP 139/85
[2019-06-22] MEDS: PANTOPRAZOLE 40 MG TABLET. PO SCH (08:28)
[2019-06-22] MEDS: ARIPiprazole 2 MG TABLET PO SCH (08:28)
[2019-06-22] MEDS: ASPIRIN 325 MG TABLET PO SCH (08:28)
[2019-06-22] MEDS: buPROPion XL 300 MG TAB.ER.24H. PO SCH (08:28)
[2019-06-22] MEDS: DOCUSATE SODIUM 100 MG CAPSULE PO SCH (08:28)
[2019-06-22] MEDS: POTASSIUM CHLORIDE 20 MEQ TABLET.ER. PO SCH ×2 (08:29→20:58)
[2019-06-22] MEDS: levETIRAcetam 500 MG TABLET PO SCH ×2 (08:29→20:58)
[2019-06-22] MEDS: MULTIVITAMIN with MINERAL TABLET. PO SCH (08:29)
[2019-06-22] MEDS: LACTOBACILLUS RHAMNOSUS GG 1 CAPSULE. PO SCH ×2 (08:29→20:58)
[2019-06-22] MEDS: METOPROLOL SUCC 24HR ER 25 MG TAB.ER.24H. PO SCH (08:30)
--- NOTE | 2019-06-22 14:47 | NUR ---
Faxed current notes, medication list, and labs to [facility] for review. Tentative discharge early to mid next week. Mary attended both SW groups this date.
[2019-06-22 15:41] VITALS: BP 135/78
--- NOTE | 2019-06-22 17:19 | NUR ---
Patient is in the dining room for assessment and medication. She is calm, cooperative and compliant. Takes her meds whole. IV site on right forearm is patent with good blood return. Flushed with 10mL saline at 1300. Dressing is clean, dry and intact. No agitation. Somewhat withdrawn to room, but did spend a good amount of time in the day room. Denies pain or discomfort. Denies SI.
[2019-06-22] MEDS: MIRTAZAPINE 7.5 MG TABLET. PO SCH (20:58)
[2019-06-22] MEDS: traZODone 50 MG TABLET. PO SCH (20:58)
--- NOTE | 2019-06-22 21:27 | NUR ---
Pt withdrawn to room, lying in bed at shift change. Pt calm, pleasant, but disorganized. Pt cooperative with assessment and compliant with medications administered whole. Pt continues on IV ABT for UTI. IV RFA flushing without difficulty.
--- NOTE | 2019-06-22 21:33 | PN ---
DATE: 06/21/2019 PSYCHIATRIC PROGRESS NOTE This late entry 06/21/2019 covers the elements not covered in my initial note. SUBJECTIVE: I met with the patient in the evening. Per JACKY Infante, the patient slept 7-1/2 hours previous night. She remains on IV meropenem. Nicotine patch was discontinued, later takes her medications whole. REVIEW OF SYSTEMS: No CV, , pulmonary, eye system symptoms on review. She does have some expressive aphasia. MENTAL STATUS EXAM: Oriented to herself and situation. Speech is as noted, abstraction fair, computation impaired, and language function intact. Mood and affect still somewhat depressed and withdrawn. Denies active suicidal ideation. LABORATORY DATA: Reviewed. IMPRESSION: Unchanged from initial note. PLAN: No change from initial note. RINA ALFORD MD DR: MAIN/esperanza JOB#: [id number] / [id number]
--- NOTE | 2019-06-22 23:32 | PN ---
DATE: 06/22/2019 SUBJECTIVE: The patient was seen today, met with the staff, chart reviewed. The patient continues to be depressed, having suicidal ideation. Staff reports some improvement. The patient states her son brought her here and the patient does not know the reason why she is here. The patient is concerned that the son may be interested in her property and also needing money from her. The patient does not recall having the behaviors that brought her here including wandering around the house with a knife and wanting to end her life. OBSERVATION: VITAL SIGNS: Temperature 97.6, blood pressure 139/85, pulse 70, respirations 16, O2 sat 98%. Slept about 7 hours last night. NEUROLOGIC: The patient also having difficulty understanding what is going on with her. The patient is also pleasant, able to hold a reasonable conversation and the patient is able to walk. MEDICATIONS: The patient's current medications include olanzapine 2.5 mg q. 2 hours p.r.n., bupropion 300 mg daily, Abilify 2 mg daily, mirtazapine 7.5 mg at night, trazodone 25 mg at night. The patient is also on Keppra 1000 mg b.i.d. for seizures. The patient is not having any side effects. LABORATORY DATA: The patient's lab reviewed, no major changes from the previous levels. ASSESSMENT: 1. Major depression, recurrent, moderate to severe. 2. Mild cognitive disorder. 3. Major neurocognitive disorder. PLAN: Continue with the current treatment plan. The patient is not having any side effects to the medications. MARILEE CARVER MD DR: ELIJAH/esperanza JOB#: [id number] / [id number]
[2019-06-23] MEDS: 0.9 % SODIUM CHLORIDE 10 ML DISP.SYRIN. IV SCH ×4 (01:02→19:00)
[2019-06-23] MEDS: MEROPENEM 1 GM in IV NORMAL SALINE 100ML 100 ML IV SCH ×2 (05:01→18:07)
[2019-06-23 06:03] VITALS: BP 160/78
[2019-06-23 06:45] LABS: BASO % 1 % (0-3); EOS # 0.1 x10^3/uL (0.0-0.7); EOS % 3 % (0-3); HEMATOCRIT 37.1 % (36.0-47.0); HEMOGLOBIN 12.2 g/dL (12.0-15.5); LYMPH # 0.6 x10^3/uL (1.0-4.8); LYMPH % 14 % (24-48); MEAN CORPUSCULAR HEMOGLOBIN 30 pg (25-35); MEAN CORPUSCULAR HGB CONC 33 g/dL (31-37); MEAN CORPUSCULAR VOLUME 90 fL (79-100); MONO # 0.3 x10^3/uL (0.0-1.1); MONO % 8 % (0-9); NEUT # 2.9 x10^3uL (1.8-7.7); NEUT % 73 % (31-73); PLATELET COUNT 217 x10^3/uL (140-400); RED BLOOD COUNT 4.12 x10^6/uL (3.50-5.40); RED CELL DISTRIBUTION WIDTH 13.8 % (11.5-14.5)
[2019-06-23 07:17] LABS: ALBUMIN 3.3 g/dL (3.4-5.0); ALBUMIN/GLOBULIN RATIO 0.9 (1.0-1.7); CALCIUM 9.1 mg/dL (8.5-10.1); CREATININE 1.6 mg/dL (0.6-1.0); GFR 32.7; MAGNESIUM 2.3 mg/dL (1.8-2.4); POTASSIUM 4.1 mmol/L (3.5-5.1); TOTAL BILIRUBIN 0.4 mg/dL (0.2-1.0); TOTAL PROTEIN 7.1 g/dL (6.4-8.2)
[2019-06-23] MEDS: POTASSIUM CHLORIDE 20 MEQ TABLET.ER. PO SCH ×2 (08:10→20:26)
[2019-06-23] MEDS: ASPIRIN 325 MG TABLET PO SCH (08:11)
[2019-06-23] MEDS: levETIRAcetam 500 MG TABLET PO SCH ×2 (08:11→20:26)
[2019-06-23] MEDS: DOCUSATE SODIUM 100 MG CAPSULE PO SCH (08:11)
[2019-06-23] MEDS: METOPROLOL SUCC 24HR ER 25 MG TAB.ER.24H. PO SCH (08:11)
[2019-06-23] MEDS: buPROPion XL 300 MG TAB.ER.24H. PO SCH (08:11)
[2019-06-23] MEDS: LACTOBACILLUS RHAMNOSUS GG 1 CAPSULE. PO SCH ×2 (08:11→20:25)
[2019-06-23] MEDS: MULTIVITAMIN with MINERAL TABLET. PO SCH (08:12)
[2019-06-23] MEDS: ARIPiprazole 2 MG TABLET PO SCH (08:12)
[2019-06-23] MEDS: PANTOPRAZOLE 40 MG TABLET. PO SCH (08:12)
--- NOTE | 2019-06-23 10:39 | NUR ---
Nursing Note Patient is pleasant compliant with medications and cooperative with assessment. IV site on right forearm is patent. Dressing is clean, dry and intact. Denies pain. Denies SI and depression. No agitation and aggression. Will continue to monitor.
[2019-06-23 13:02] VITALS: BP 138/67
--- NOTE | 2019-06-23 13:13 | NUR ---
IV site on right forearm is patent with good blood return. Flushed with 10mL saline at 1300. Dressing is clean, dry and intact.
--- NOTE | 2019-06-23 14:35 | NUR ---
WEEKLY NOTE: Mary is averaging six hours of sleep at night and intakes of meals are 80%. She is currently being treated with IV medication for a UTI. She attends some groups but needs encouragement to do so and will decline invites if she is not feeling well or resting in bed. Mary can be withdrawn to her room. She is medication complaint. Tentative discharge around 06/29/19.
[2019-06-23 16:13] VITALS: BP 132/80
--- NOTE | 2019-06-23 19:44 | NUR ---
WEEKLY ACTIVITY THERAPY NOTE Date of Admission:06/07/2019 Date of AT Assessment: 06/10/2019 Goal aimed: to increase socialization and engagement Initial Goal: Pt. will engage in three Activity Therapy groups or individual sessions before discharge. Goal changed 06/14/19: Pt. will participate in at least five Activity Therapy groups per week. Weekly progress towards goal: 3/5 Group participation level: Full in two groups, moderate in one group Weekly highlights: Thursday afternoon/ Thursday morning full groups: money experience and [employer]/ relaxation discussion, drumming on Thursday Behaviors observed: not around group much this week but more engaged in activities when present: sharing thoughts more clearly, increased focus/attention Plan: no change to goal Beneficial adaptations: positive response to music, potentially battery operated cat, sitting close to group fiscal services director
--- NOTE | 2019-06-23 19:50 | PN ---
DATE: 06/23/2019 SUBJECTIVE: The patient was seen today, met with the staff, chart reviewed. The patient is apparently being treated for UTI, currently receiving IV antibiotics. Staff reports some improvement, still tends to withdraw, not having any other physical complaints. She is still confused at times. The patient is able to hold reasonable conversation. The patient seems to be oriented to surroundings, but the patient also having some paranoia about her son, afraid he is going to take her money. OBSERVATION: VITAL SIGNS: Temperature 98.4, blood pressure 160/78, pulse 66, respirations 16, O2 sat 95%. GENERAL: Slept about 6 hours last night. The patient is not having any physical complaints. LABORATORY DATA: The patient's lab reviewed. MEDICATIONS: The patient's current medications include olanzapine 2.5 mg q. 2 hours p.r.n., bupropion 300 mg daily, Abilify 2 mg daily, mirtazapine 7.5 mg at night and trazodone 25 mg at night. The patient is also on Keppra 1000 mg b.i.d. for seizures. The patient denies of any side effects to the medications. ASSESSMENT: 1. Major depression, recurrent, moderate to severe. 2. Cognitive disorder. PLAN: To continue with the treatment. LENGTH OF STAY: 3-5 days. MARILEE CARVER MD DR: ELIJAH/esperanza JOB#: [id number] / [id number]
[2019-06-23] MEDS: traZODone 50 MG TABLET. PO SCH (20:25)
[2019-06-23] MEDS: MIRTAZAPINE 7.5 MG TABLET. PO SCH (20:26)
[2019-06-24] MEDS: 0.9 % SODIUM CHLORIDE 10 ML DISP.SYRIN. IV SCH ×4 (01:00→18:40)
--- NOTE | 2019-06-24 01:02 | NUR ---
Pt located in the her bedroom this evening, sleeping. Compliant with medications and assessment. pts iv was flushed and capped at 19:00 and 01:00. pt had no complaints at this time
--- NOTE | 2019-06-24 04:54 | NUR ---
pt 0600 meropenem vial was already activated when I was going to activate it. Called Lianet (Small Business Director) and asked what I needed to do. She said to go ahead and administer the drug.
[2019-06-24] MEDS: MEROPENEM 1 GM in IV NORMAL SALINE 100ML 100 ML IV SCH ×2 (05:08→18:07)
[2019-06-24 05:47] VITALS: BP 146/83
[2019-06-24] MEDS: PANTOPRAZOLE 40 MG TABLET. PO SCH (08:50)
[2019-06-24] MEDS: ARIPiprazole 2 MG TABLET PO SCH (08:50)
[2019-06-24] MEDS: ASPIRIN 325 MG TABLET PO SCH (08:50)
[2019-06-24] MEDS: levETIRAcetam 500 MG TABLET PO SCH ×2 (08:51→19:53)
[2019-06-24] MEDS: MULTIVITAMIN with MINERAL TABLET. PO SCH (08:51)
[2019-06-24] MEDS: buPROPion XL 300 MG TAB.ER.24H. PO SCH (08:51)
[2019-06-24] MEDS: METOPROLOL SUCC 24HR ER 25 MG TAB.ER.24H. PO SCH (08:51)
[2019-06-24] MEDS: DOCUSATE SODIUM 100 MG CAPSULE PO SCH (08:51)
[2019-06-24] MEDS: POTASSIUM CHLORIDE 20 MEQ TABLET.ER. PO SCH ×2 (08:51→19:54)
[2019-06-24] MEDS: LACTOBACILLUS RHAMNOSUS GG 1 CAPSULE. PO SCH ×2 (08:51→19:53)
--- NOTE | 2019-06-24 10:34 | NUR ---
Patient was in the dining room during morning rounding, had just gone to her room. Took medications whole, allowed for morning assessment. Patient has been pleasant, visiting with the nurse about the current book she's reading. No agitation noted, pt denies pain. Will continue to monitor.
[2019-06-24 16:24] VITALS: BP 161/77
--- NOTE | 2019-06-24 16:24 | NUR ---
1:1 with Mary to socialize and support. While Mary reports decreased feeling so sadness and hopelessness, she continues to grieve the loss of her independence and previous way of life. 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 Encouraged Mary to focus on the abilities that she still has and pursue those things that improve her quality of life. Mary identified that she is still able to dance, enjoys music, and could paint provided that she had the supplies. She also spoke of the friendship she has with her roommate at [place].
[2019-06-24] MEDS: traZODone 50 MG TABLET. PO SCH (19:54)
[2019-06-24] MEDS: MIRTAZAPINE 7.5 MG TABLET. PO SCH (19:54)
--- NOTE | 2019-06-24 21:15 | NUR ---
Nursing note: Assumed care of Pt in the day room. She was calm and compliant, no c/o pain, no behaviors
--- NOTE | 2019-06-25 00:26 | PN ---
DATE: 06/24/2019 SUBJECTIVE: The patient was seen today, met with the staff, chart reviewed. The patient continues to be treated for UTI with IV antibiotics. The patient apparently has shown some improvement. The patient states she is less anxious and she is able to read a book. The patient still withdrawn, inappropriate affect, significant problems with concentration and thinking. OBSERVATION: VITAL SIGNS: Temperature 97.7, blood pressure 146/83, pulse 73, respirations 16, O2 sat 96%. GENERAL: Slept about 7 hours last night. The patient's appetite is fair. LABORATORY DATA: The patient's lab reviewed. MEDICATIONS: The patient's current medications include olanzapine 2.5 mg q. 2 hours p.r.n., bupropion 300 mg daily, Abilify 2 mg daily, mirtazapine 7.5 mg at night and trazodone 25 mg at night. The patient is also taking Keppra 1000 mg b.i.d. for seizures. The patient is not having any side effects. ASSESSMENT: 1. Major depression, recurrent, moderate to severe. 2. Cognitive disorder, mild. PLAN: To continue with the treatment. LENGTH OF STAY: 3-4 days. MARILEE CARVER MD DR: ELIJAH/esperanza JOB#: [id number] / [id number]
[2019-06-25 06:40] VITALS: BP 159/62
[2019-06-25] MEDS: ARIPiprazole 2 MG TABLET PO SCH (08:31)
[2019-06-25] MEDS: ASPIRIN 325 MG TABLET PO SCH (08:31)
[2019-06-25] MEDS: PANTOPRAZOLE 40 MG TABLET. PO SCH (08:31)
[2019-06-25] MEDS: MULTIVITAMIN with MINERAL TABLET. PO SCH (08:32)
[2019-06-25] MEDS: METOPROLOL SUCC 24HR ER 25 MG TAB.ER.24H. PO SCH (08:32)
[2019-06-25] MEDS: POTASSIUM CHLORIDE 20 MEQ TABLET.ER. PO SCH ×2 (08:32→21:02)
[2019-06-25] MEDS: levETIRAcetam 500 MG TABLET PO SCH ×2 (08:32→21:03)
[2019-06-25] MEDS: DOCUSATE SODIUM 100 MG CAPSULE PO SCH (08:32)
[2019-06-25] MEDS: LACTOBACILLUS RHAMNOSUS GG 1 CAPSULE. PO SCH ×2 (08:32→21:04)
[2019-06-25] MEDS: buPROPion XL 300 MG TAB.ER.24H. PO SCH (08:33)
--- NOTE | 2019-06-25 11:20 | NUR ---
Patient was in the dining room during morning rounding, took medications whole, allowed for morning assessment. Patient said she slept great, has been pleasant and cheerful in the dayroom. No agitation noted, pt denies pain. Will continue to monitor.
[2019-06-25 15:55] VITALS: BP 144/79
[2019-06-25] MEDS: MIRTAZAPINE 7.5 MG TABLET. PO SCH (21:03)
[2019-06-25] MEDS: traZODone 50 MG TABLET. PO SCH (21:04)
--- NOTE | 2019-06-25 22:04 | PN ---
DATE: 06/25/2019 SUBJECTIVE: The patient was seen today, met with the staff, chart reviewed. The patient completed her intravenous antibiotics today. Staff reports she is much improved since she has been on antibiotics. She is pleasant, participating in all the activities. OBSERVATION: Vital signs: Temperature 97.5, blood pressure 144/79, pulse 87, respirations 16, O2 sat 99%. Slept about 6 hours last night. The patient denies of any physical complaints. The patient still has difficulty communicating, has some speech impediment. The patient also has problems with concentration and thinking and also has some emotional lability. MEDICATIONS: The patient's current medications include olanzapine 2.5 mg q. 2 hours p.r.n., bupropion 300 mg daily, Abilify 2 mg daily, mirtazapine 7.5 mg at night and trazodone 25 mg at night. The patient also has history of seizure disorder and currently on Keppra 1000 mg daily. ASSESSMENT: 1. Major depressive disorder, recurrent, moderate to severe. 2. Cognitive disorder, mild. PLAN: Continue with current treatment plan. LENGTH OF STAY: 3-4 days. MARILEE CARVER MD DR: ELIJAH/esperanza JOB#: [id number] / [id number]
--- NOTE | 2019-06-25 23:19 | NUR ---
Nursing Note Pt pleasant and cooperative, seems more animated this pm. Tells me about her new book, compliments me on my necklace, seems to be tracking quite well. Complains of dry mouth, speech is thick offered extra fluids.
[2019-06-26 06:26] VITALS: BP 128/79
[2019-06-26] MEDS: ARIPiprazole 2 MG TABLET PO SCH (08:43)
[2019-06-26] MEDS: LACTOBACILLUS RHAMNOSUS GG 1 CAPSULE. PO SCH ×2 (08:43→19:21)
[2019-06-26] MEDS: MULTIVITAMIN with MINERAL TABLET. PO SCH (08:43)
[2019-06-26] MEDS: buPROPion XL 300 MG TAB.ER.24H. PO SCH (08:43)
[2019-06-26] MEDS: levETIRAcetam 500 MG TABLET PO SCH ×2 (08:43→19:21)
[2019-06-26] MEDS: ASPIRIN 325 MG TABLET PO SCH (08:43)
[2019-06-26] MEDS: PANTOPRAZOLE 40 MG TABLET. PO SCH (08:44)
[2019-06-26] MEDS: POTASSIUM CHLORIDE 20 MEQ TABLET.ER. PO SCH ×2 (08:44→19:21)
[2019-06-26] MEDS: METOPROLOL SUCC 24HR ER 25 MG TAB.ER.24H. PO SCH (08:45)
[2019-06-26] MEDS: DOCUSATE SODIUM 100 MG CAPSULE PO SCH (08:46)
--- NOTE | 2019-06-26 10:55 | NUR ---
Nursing note: Pt was in her room this morning for her meds and assessment. Pt was compliant with her meds whole and was cooperative with her assessment. She mentioned that she did not sleep well last night, so she was feeling a little tired. Pt denies depression and SI. She has been withdrawn to her room for most of the morning reading her book. Will continue to monitor.
[2019-06-26 14:00] VITALS: BP 133/75
[2019-06-26 15:34] VITALS: BP 120/74
[2019-06-26] MEDS: MIRTAZAPINE 7.5 MG TABLET. PO SCH (19:21)
[2019-06-26] MEDS: traZODone 50 MG TABLET. PO SCH (19:22)
--- NOTE | 2019-06-26 22:53 | PN ---
DATE: 06/26/2019 SUBJECTIVE: The patient was seen today. I met with the staff, chart reviewed. The patient is still having problems with her balance. She is a fall risk, but the patient continues to walk without support. The patient is participating in some of the activities. The patient also has significant problems with the speech because of aphasia. OBSERVATION: VITAL SIGNS: Temperature 97.5, blood pressure 144/79, pulse 87, respirations 16, O2 sat 99%. GENERAL: The patient's sleep improved. The patient is not having any physical complaints. MEDICATIONS: The patient's current medications include olanzapine 2.5 mg q. 2 hours p.r.n., bupropion 300 mg daily, Abilify 2 mg daily, mirtazapine 7.5 mg at night and trazodone 25 mg at night. The patient also has a history of seizure disorder. ASSESSMENT: 1. Major depressive disorder, recurrent, moderate to severe. 2. Cognitive disorder, mild. PLAN: To continue with the treatment. MARILEE CARVER MD DR: ELIJAH/esperanza JOB#: [id number] / [id number]
[2019-06-27 05:56] VITALS: BP 144/81
[2019-06-27] MEDS: ARIPiprazole 2 MG TABLET PO SCH (07:55)
[2019-06-27] MEDS: POTASSIUM CHLORIDE 20 MEQ TABLET.ER. PO SCH ×2 (07:55→19:21)
[2019-06-27] MEDS: ASPIRIN 325 MG TABLET PO SCH (07:55)
[2019-06-27] MEDS: buPROPion XL 300 MG TAB.ER.24H. PO SCH (07:55)
[2019-06-27] MEDS: LACTOBACILLUS RHAMNOSUS GG 1 CAPSULE. PO SCH ×2 (07:55→19:20)
[2019-06-27] MEDS: DOCUSATE SODIUM 100 MG CAPSULE PO SCH (07:56)
[2019-06-27] MEDS: MULTIVITAMIN with MINERAL TABLET. PO SCH (07:56)
[2019-06-27] MEDS: METOPROLOL SUCC 24HR ER 25 MG TAB.ER.24H. PO SCH (07:57)
[2019-06-27] MEDS: PANTOPRAZOLE 40 MG TABLET. PO SCH (07:57)
[2019-06-27] MEDS: levETIRAcetam 500 MG TABLET PO SCH ×2 (07:57→19:20)
--- NOTE | 2019-06-27 10:29 | NUR ---
Nursing note: Pt in dining room for morning meds and assessment. Pt compliant with meds whole and was cooperative with her assessment. She had no complaints this morning and is currently in the day room. Will continue to monitor.
[2019-06-27 15:39] VITALS: BP 133/81
[2019-06-27] MEDS: MIRTAZAPINE 7.5 MG TABLET. PO SCH (19:20)
[2019-06-27] MEDS: traZODone 50 MG TABLET. PO SCH (19:20)
--- NOTE | 2019-06-27 21:52 | NUR ---
Nursing Note Pt in good spirits, pleasant and cooperative. Compliant with po meds, denies other complaints, smiles on approach, remembers my name and compliments me again on my snowflake necklace.
--- NOTE | 2019-06-28 01:12 | PN ---
DATE: 06/27/2019 SUBJECTIVE: The patient was seen today, met with the staff, chart reviewed. The patient continues to show improvement. Her gait is improved. No falls. The patient is much calmer. The patient will spend most of the time in her room, likes to read. The patient has not exhibited any major behavior problems. No major mood swings. OBSERVATION: VITAL SIGNS: Temperature 98.2, blood pressure 144/81, pulse 59, respirations 18, O2 sat 97%. Slept about 6 hours last night. The patient's appetite improved. The patient is participating in all the activities. MEDICATIONS: The patient's current medications include olanzapine 2.5 mg q. 2 hours p.r.n., bupropion 300 mg daily, Abilify 2 mg daily, mirtazapine 7.5 mg at night and trazodone 25 mg at night. The patient is not having any side effects. ASSESSMENT: 1. Major depressive disorder, recurrent, moderate to severe. 2. Cognitive disorder, mild. PLAN: To continue with the treatment. The patient is planned for discharge in the next 2-3 days. MARILEE CARVER MD DR: ELIJAH/esperanza JOB#: [id number] / [id number]
[2019-06-28 06:02] VITALS: BP 155/88
[2019-06-28] MEDS: buPROPion XL 300 MG TAB.ER.24H. PO SCH (08:16)
[2019-06-28] MEDS: PANTOPRAZOLE 40 MG TABLET. PO SCH (08:16)
[2019-06-28] MEDS: ARIPiprazole 2 MG TABLET PO SCH (08:16)
[2019-06-28] MEDS: MULTIVITAMIN with MINERAL TABLET. PO SCH (08:16)
[2019-06-28] MEDS: ASPIRIN 325 MG TABLET PO SCH (08:16)
[2019-06-28] MEDS: METOPROLOL SUCC 24HR ER 25 MG TAB.ER.24H. PO SCH (08:17)
[2019-06-28] MEDS: levETIRAcetam 500 MG TABLET PO SCH ×2 (08:17→19:57)
[2019-06-28] MEDS: POTASSIUM CHLORIDE 20 MEQ TABLET.ER. PO SCH ×2 (08:18→19:58)
[2019-06-28] MEDS: LACTOBACILLUS RHAMNOSUS GG 1 CAPSULE. PO SCH ×2 (08:18→19:57)
[2019-06-28] MEDS: DOCUSATE SODIUM 100 MG CAPSULE PO SCH (08:19)
[2019-06-28] MEDS: CHOLECALCIFEROL (VITAMIN D3) 50,000 UNIT CAPSULE PO SCH (08:28)
--- NOTE | 2019-06-28 12:09 | NUR ---
[facility] Social Work Discharge Planning Form Patient Name REGIS SCHMITT Admit Date: 06/06/19 DISCHARGE PLAN Discharge Destination: [facility] Transportation: [facility] will transport on 06/29/19 at 1-1:30pm. Special Instructions/Notes: Upon return to [facility], please arrange for f/u with PCP, facility psychiatrist, and facility psychologist within 7-14 days. DISCHARGE TO FACILITY Facility: [facility] Address: [address] [place], [place] [id number] Contact Name: IBETH Li Contact Name: juan Ackerman director PCP: Dr. Mcadams, , (fax) Psychiatrist: Dr. Peace [phone], (fax)
--- NOTE | 2019-06-28 13:44 | NUR ---
Reviewed with Meka, director case at [facility], and faxed current notes/medication list/labs in preparation for d/c on 06/29/19. Meka will arrange transport for 06/29/19 with mixing picker tender time between 1-1:30pm. Call placed to guardian/disease case manager, Gwen Cristina. Left detailed message with d/c arrangements and request for return phone call should she have any further questions.
--- NOTE | 2019-06-28 14:38 | NUR ---
Met with Mary to review safety plan worksheet. Placed copy on chart for her to have at time of discharge on 06/29/19. Mary then went to the day room have her nails done with supports from a staff member.
[2019-06-28 15:55] VITALS: BP 143/81
--- NOTE | 2019-06-28 18:13 | NUR ---
Patient is alert and oriented to self and situation. Speech is soft and garbled at times. Able to make wants and needs known at times, able to verbalize others at times. Cooperative with staff in all cares this shift. No negative moods or behaviors. Took meds whole this shift. This nurse painted patient's nails this shift per patient request.
[2019-06-28] MEDS: traZODone 50 MG TABLET. PO SCH (19:57)
[2019-06-28] MEDS: MIRTAZAPINE 7.5 MG TABLET. PO SCH (19:58)
--- NOTE | 2019-06-28 20:00 | NUR ---
Pt laying down in bed reading a magazine upon assessment, reporting that she was ready to go to bed. Pt requested that her medications be crushed in yogurt. Pt compliant with medication and assessment.
--- NOTE | 2019-06-29 00:54 | PN ---
DATE: 06/28/2019 SUBJECTIVE: The patient was seen today, met with the staff, chart reviewed. The patient's behavior continues to improve. The patient is able to walk. No recent falls. The patient still tends to isolate herself. OBSERVATION: VITAL SIGNS: Temperature 97.0, blood pressure 155/88, pulse 68, respirations 16, O2 sat 95%. GENERAL: Slept about 9 hours last night. The patient's appetite improved. The patient is not having any major physical complaints. MEDICATIONS: The patient's current medications include olanzapine 2.5 mg q. 2 hours p.r.n., bupropion 300 mg daily, Abilify 2 mg daily, mirtazapine 7.5 mg at night, trazodone 25 mg at night. The patient is not having any side effects. LABORATORY DATA: The patient's lab reviewed. ASSESSMENT: 1. Major depressive disorder, recurrent, moderate to severe. 2. Cognitive disorder, mild. PLAN: Continue with the treatment. To be discharged tomorrow. MARILEE CARVER MD DR: ELIJAH/esperanza JOB#: [id number] / [id number]
[2019-06-29] MEDS ORDERED: ACET325T21 PO (01:31)
[2019-06-29] MEDS ORDERED: ARIP2TAB35 PO (01:32)
[2019-06-29] MEDS ORDERED: CHOL500050 PO (01:34)
[2019-06-29] MEDS ORDERED: MAG30ORA2 PO (01:37)
[2019-06-29] MEDS ORDERED: MAGN2400 PO (01:38)
[2019-06-29] MEDS ORDERED: METH28OI2 TP (01:40)
[2019-06-29] MEDS ORDERED: OLAN5TAB5 PO (01:44)
[2019-06-29] MEDS ORDERED: POTA20TA4 PO (01:45)
[2019-06-29] MEDS ORDERED: BUPR300T3 PO (01:46)
[2019-06-29] MEDS ORDERED: HYDR-2869 PO (01:48)
[2019-06-29 06:03] VITALS: BP 121/75
[2019-06-29] MEDS: ASPIRIN 325 MG TABLET PO SCH (08:07)
[2019-06-29] MEDS: PANTOPRAZOLE 40 MG TABLET. PO SCH (08:07)
[2019-06-29] MEDS: ARIPiprazole 2 MG TABLET PO SCH (08:07)
[2019-06-29] MEDS: levETIRAcetam 500 MG TABLET PO SCH (08:08)
[2019-06-29] MEDS: MULTIVITAMIN with MINERAL TABLET. PO SCH (08:08)
[2019-06-29] MEDS: DOCUSATE SODIUM 100 MG CAPSULE PO SCH (08:08)
[2019-06-29] MEDS: LACTOBACILLUS RHAMNOSUS GG 1 CAPSULE. PO SCH (08:08)
[2019-06-29] MEDS: POTASSIUM CHLORIDE 20 MEQ TABLET.ER. PO SCH (08:08)
[2019-06-29] MEDS: buPROPion XL 300 MG TAB.ER.24H. PO SCH (08:09)
[2019-06-29] MEDS: METOPROLOL SUCC 24HR ER 25 MG TAB.ER.24H. PO SCH (08:09)
--- NOTE | 2019-06-29 10:11 | NUR ---
Patient was in the dining room during morning rounding, took medications whole, allowed for morning assessment. Patient is leaving this afternoon, denies S.I. Was visiting to the staff about her nails that were painted yesterday. No agitation noted, pt denies pain, will continue to monitor.
[2019-06-29 13:00] VITALS: BP 121/75
--- NOTE | 2019-06-29 13:35 | NUR ---
Transition Record was faxed to follow-up provider with the following elements: Reason for admission, procedures, tests, principal diagnosis, pending studies, patient instructions, 09/02 contact information for unit, phone number to obtain pending test results, plan for follow-up care, physician follow-up, advanced directive information, and medication list with dose, duration and instructions. This information was included in the following documents: History and physical, lab results, study results, progress notes, social work planning form, DC instruction form, patient visit summary, and medication reconciliation form. Date & time record faxed: 06/29/19 @0147. Record faxed to:[facility], P:[phone]. F: [phone] Record discussed with/ report given to:[place]. Addendum: 07/04/19 at 1453 by MICHOACANO FREEMAN RN Tobacco : Patient refused to contact tobacco sessation line with RN and stated she has not used tobacco products
--- NOTE | 2019-06-29 18:28 | DS ---
DATE OF DISCHARGE: 06/29/2019 FINAL DIAGNOSES: AXIS I: 1. Major depressive disorder, recurrent, severe. 2. Mild cognitive disorder. 3. Major neurocognitive disorder, early vascular with depression, and behavior problems. 4. Impulse control disorder, unspecified. AXIS II: None. AXIS III: Chronic kidney disease, hypertension, seizure disorder, anemia, status post cerebral infarction, expressive aphasia. REASON FOR ADMISSION: This 63-year-old female was admitted to the [facility] inpatient program at [facility] from [facility] because of having increased depression, status post cerebrovascular accident with suicidal ideation with a plan to use a knife. The patient is also expressing feelings of hopeless and helplessness. HISTORY OF PRESENT ILLNESS: The patient has been at the nursing facility since 07/07/2018. Prior to that, she was living independently. The patient never , single with no children, all close family. The patient apparently failed outpatient treatment. The patient's depression is getting worse to the point she is becoming more risk for self-harm. The patient has a long history of depression, feeling hopeless and helpless, worthless, sleep and appetite disturbances. The patient made suicidal statement and putting self-harm and also plans to use a knife. The patient was also expressing feelings of hopelessness, helplessness, and worthlessness. The patient was seeing a psychologist for counseling. The patient also was seeing a psychiatrist for her medications. No history of prior suicidal attempt. HOSPITAL COURSE: The patient had a physical exam, routine lab work including CBC, chem profile, and urinalysis. The patient's labs were within the normal range except for elevated BUN was 42. Prior to discharge, it was 31, creatinine was 1.6. The patient's iron was low 43, TIBC 208. The patient was involved in the program including individual therapy, group therapy, and activity therapy. The patient did participate in most of the activities. The patient was on olanzapine 2.5 mg q. 2 hours p.r.n., bupropion 300 mg daily, potassium chloride 20 mEq b.i.d., Abilify 2 mg daily, mirtazapine 7.5 mg at night, trazodone 25 mg at night, hydralazine 50 mg t.i.d., Keppra 1000 mg b.i.d. for seizures. The patient was also on metoprolol 12.5 mg daily, aspirin 325 mg daily, Protonix 40 mg daily. The patient did show improvement for a period of time. The patient was compliant, took her medications. The patient was also treated for UTI that helped her with her cognition and her affect. AFTERCARE PLAN: The patient at the time of discharge was medically stable, no longer expressing any suicidal thoughts or plans. Her depression improved significantly. The patient will be returning to [place] to continue with the medication listed above. Continue to see a counselor and the psychiatrist. MARILEE CARVER MD DR: ELIJAH/esperanza JOB#: [id number] / [id number]
== END 2019-06-29 13:35 | DRG 885 ==
LOC: ER 14:28 → GEROPSY 18:15
PROVIDERS: ADMIT Psychiatry & Neurology Psychiatry; ATTEND Psychiatry & Neurology Psychiatry
DX: F33.3 Major depressive disorder, recurrent, severe with psychotic symptoms (principal); N39.0 Urinary tract infection, site not specified; R45.851 Suicidal ideations; F01.51 Vascular dementia, unspecified severity, with behavioral disturbance; F63.9 Impulse disorder, unspecified; F41.9 Anxiety disorder, unspecified; N18.9 Chronic kidney disease, unspecified; D64.9 Anemia, unspecified; G40.909 Epilepsy, unspecified, not intractable, without status epilepticus; I12.9 Hypertensive chronic kidney disease with stage 1 through stage 4 chronic kidney disease, or unspecified chronic kidney disease; Z79.82 Long term (current) use of aspirin; Z79.899 Other long term (current) drug therapy; Z91.81 History of falling; Z88.0 Allergy status to penicillin; Z91.83 Wandering in diseases classified elsewhere; I69.320 Aphasia following cerebral infarction
CPT/HCPCS: 36415; 80048; 80053; 80061; 80307; 81001; 82140; 82306; 82550; 82607; 83036; 83540; 83550; 83735; 84436; 84443; 84480; 85025; 86592; 87086; 87186; 93005; 99406; J2185; P9612; 99285-25